=== PATIENT | male | born 1930 | race Caucasian/White ===

== ENCOUNTER → 2016-06-20 | Outpatient (CLI) | payer OTHER ==
[~2016-06-20] MED LIST: ACET-1256 PO; ALLO300T2 PO; AMX500 PO; ASPI81TA28 PO; ATOR-26 PO; ATROPO OR; BACI500O11 TOP; BUME2TAB3 PO; CALC0.2510 PO; CETI10TA84 PO; CRG25 PO; CYAN100020 SL; DIAZ-165 PO; DXY100 PO; FERR325T74 PO; GEMF600T3 PO; GLIM2TAB2 PO; INSDGIPEN SC; INSU32MI13 SQ; ISOS120T5 PO; LEVO100T7 PO; LINA1CAP PO; LORA-741 PO; MCRK20 PO; METO2.5T PO; MRPL PO; NRN400 PO; NTRGSL/4 UT; OMEP20CA9 PO; ONDA4TAB10 SL; ONDA8TAB6 PO; ONGLYZA PO; OXYC10SO PO; POTA-335 PO; POTA20TA16 PO; TEMA-79 PO; TRAM-10 PO; TRAZ100T29 PO
[2016-06-20 17:50] LABS: URINE APPEARANCE CLEAR (CLEAR); URINE BILIRUBIN NEG (NEG); URINE COLOR YELLOW; URINE NITRITE NEG (NEG); URINE SPECIFIC GRAVITY 1.011 (1.000-1.030); UROBILINOGEN NEG (NEG)
[2016-06-20 17:56] LABS: MANUAL MICROSCOPIC REQUIRED? NO; REVIEW REQ? NO
--- NOTE | 2016-06-29 12:31 | CODING QUERY MEDICAL NECESSITY ---
SUPPORTING DIAGNOSIS NEEDED A supporting diagnosis is required for the test/procedure performed on this patient in order for us to be reimbursed by the patient's insurance. Please provide a supporting diagnosis for the following test/procedure listed below next to the test name along with your signature. *If there is no additional diagnosis for this patient that would support the following test/procedure please document that below next to the test/procedure. Test(s)/Procedure(s) that require a supporting diagnosis: DOS 06/20/16 * Vitamin D DIAGNOSIS: Provider Signature: Date: Thank you Frannie Barragan Health Information Management Once completed, please kindly fax back to [phone] For questions please call [phone]
== END | disposition home or self-care (01) ==
LOC: C.LABMFLN 14:57
PROVIDERS: ATTEND Family Medicine
DX: L29.9 Pruritus, unspecified (principal); R41.0 Disorientation, unspecified; R35.0 Frequency of micturition; D64.9 Anemia, unspecified; E55.9 Vitamin D deficiency, unspecified

== ENCOUNTER → 2016-07-03 | Outpatient (CLI) | payer OTHER | END | disposition home or self-care (01) | LOC: C.LABSPEC 08:49 | PROVIDERS: ATTEND Internal Medicine Cardiovascular Disease | DX: E11.22 Type 2 diabetes mellitus with diabetic chronic kidney disease (principal); N18.9 Chronic kidney disease, unspecified; I50.22 Chronic systolic (congestive) heart failure ==

== ENCOUNTER 2016-07-04 16:44 | Inpatient (IN) | payer OTHER ==
[~2016-07-04] VITALS: Ht 182.9 cm; Wt 89.0 kg
[~2016-07-04 16:44] MED LIST changes: -ACET-1256 PO; -ATROPO OR; -BACI500O11 TOP; -CETI10TA84 PO; -DIAZ-165 PO; -MCRK20 PO; -MRPL PO; -ONDA4TAB10 SL; -ONDA8TAB6 PO; -OXYC10SO PO; -POTA20TA16 PO; -TRAZ100T29 PO
[2016-07-04] MEDS ORDERED: POTA20TA16 PO (17:29)
[2016-07-04] MEDS ORDERED: TRAZ100T29 PO (17:30)
[2016-07-04] MEDS ORDERED: CETI10TA84 PO (17:31)
[2016-07-04] MEDS ORDERED: ACET-1256 PO (17:32)
[2016-07-04] MEDS ORDERED: ONDA8TAB6 PO (17:32)
[2016-07-04 18:05] LABS: INR 1.2 (0.9-1.1); PARTIAL THROMBOPLASTIN RATIO 1.1; PROTHROMBIN TIME (PATIENT) 13.1 SECONDS (9.0-12.0)
[2016-07-04 18:09] LABS: ALT/SGPT 11 U/L (12-78); BLOOD UREA NITROGEN 47 mg/dl (7-18); BUN/CREATININE RATIO 21.4 (10-20); CALCIUM 9.2 mg/dl (8.5-10.1); CARBON DIOXIDE 28 mmol/L (21-32); CHLORIDE 100 mmol/L (98-107); GLUCOSE 199 mg/dl (70-99); POTASSIUM 3.9 mmol/L (3.5-5.1); SODIUM 141 mmol/L (136-145)
--- NOTE | 2016-07-04 18:12 | DIAGNOSTIC IMAGING REPORT ---
CT SCAN OF THE BRAIN WITHOUT IV CONTRAST CLINICAL HISTORY: Change in mental status. COMPARISON STUDY: CT of the brain dated 02/28/2014. TECHNIQUE: Unenhanced axial CT scan of the brain is performed from the vertex to the skull base. CT DOSE: 729.78 mGycm FINDINGS: Brain parenchyma: There are age-related involutional changes noting [id number]-en-[id number] patchy subcortical and periventricular microangiopathic change. There is no hemorrhage, mass effect, or evidence of acute territorial ischemia by CT criteria. Graham-white matter is preserved. No extra-axial fluid collection is seen. Ventricles, sulci, cisterns: Prominent secondary to involutional change. Intracranial vasculature: There is advanced atherosclerotic calcification of the cavernous carotid and vertebral arteries. Calvarium: Unremarkable. Sinuses and mastoids: The visualized paranasal sinuses are clear. The mastoid air cells are well pneumatized. Orbits: The bony orbits are grossly intact. There are bilateral ocular lens implants. IMPRESSION: There is no hemorrhage, mass effect, or evidence of acute territorial ischemia by CT criteria. Electronically signed by: Jp Taylor M.D. 07/04/2016 6:10 PM Dictated Date/Time: 07/04/2016 6:08 PM
[2016-07-04 18:13] LABS: ALB/GLOB RATIO 0.9 (0.9-2); ALKALINE PHOSPHATASE 97 U/L (45-117); AST/SGOT 23 U/L (15-37); CKMB/CK RATIO 1.2 (0-3.0)
[2016-07-04 18:21] LABS: URINE APPEARANCE CLEAR (CLEAR); URINE BILIRUBIN NEG (NEG); URINE COLOR YELLOW; URINE NITRITE NEG (NEG); URINE SPECIFIC GRAVITY 1.008 (1.000-1.030); UROBILINOGEN NEG (NEG)
[2016-07-04 18:22] LABS: MANUAL MICROSCOPIC REQUIRED? NO; REVIEW REQ? NO
[2016-07-04 18:26] LABS: HEMATOCRIT 31.1 % (42-52); MEAN CELL VOLUME 104.4 fL (80-100); MEAN CORPUSCULAR HEMOGLOBIN 34.9 pg (25-34); MEAN CORPUSCULAR HGB CONC 33.4 g/dl (32-36); MEAN PLATELET VOLUME 9.9 fL (7.4-10.4); PLATELET COUNT 79 K/uL (130-400); RED BLOOD COUNT 2.98 M/uL (4.7-6.1); WHITE BLOOD COUNT 1.91 K/uL (4.8-10.8)
[2016-07-04 18:27] LABS: ANISOCYTOSIS PRESENT; BASO ABS # 0.02 K/uL (0-0.2); COMPLETE YES; DOHLE BODIES OCCASIONAL; EOS % 3.7 %; IG% 0.5 %; LYMPH % 49.2 %; LYMPH ABS # 0.94 K/uL (1.2-3.4); MONO % 5.2 %; NEUT % 40.4 %; SCHISTOCYTES OCCASIONAL; TEAR DROP CELLS OCCASIONAL; TOXIC GRANULATION 3+
[2016-07-04] MEDS ORDERED: ZOLPIDEM TARTRATE 5 MG TAB PO PRN (18:45)
[2016-07-04] MEDS ORDERED: DEXTROSE 50% 50 ML SYR IV PRN (18:45)
[2016-07-04] MEDS ORDERED: ACETAMINOPHEN 325 MG TAB PO PRN (18:45)
[2016-07-04] MEDS ORDERED: LORAZEPAM 0.5 MG TAB PO PRN (18:45)
[2016-07-04] MEDS ORDERED: NITROGLYCERIN 0.4 MG SL PER TAB CHARGE UT PRN (18:45)
[2016-07-04] MEDS ORDERED: TRAMADOL HCL 50 MG TAB PO PRN (18:45)
[2016-07-04] MEDS ORDERED: GLUCOSE 10 TABS/TUBE PO PRN (18:45)
[2016-07-04] MEDS ORDERED: GLUCAGON FOR INJ 1 MG VIAL SQ PRN (18:45)
[2016-07-04] MEDS ORDERED: GLUCOSE 40% GEL 15 GM TUBE PO PRN (18:45)
[2016-07-04] MEDS ORDERED: CETIRIZINE HCL 10 MG TAB PO PRN (18:45)
[2016-07-04] MEDS ORDERED: TRAZODONE HCL 100 MG TAB PO PRN (18:45)
[2016-07-04] MEDS ORDERED: VANCOMYCIN CONSULT ACTIVE PRN (19:45)
[2016-07-04] MEDS ORDERED: PIPERACILL/TAZOBAC CONSULT ACTIVE PRN (19:45)
[2016-07-04] MEDS ORDERED: PIPERACILL/TAZOBAC IV 3.375 GM in DEXTROSE 5% 100ML IV ONE (19:45)
--- NOTE | 2016-07-04 19:48 | Pharmacy Progress Note ---
Pharmacy Antibiotic Consult Date of Service: Jul 04, 2016. Pharmacy Dosing Scope Pharmacy is consulted to initiate vancomycin/Zosyn IV dosing therapy, order appropriate labs and adjust drug dose/frequency. Subjective The patient is a 85 year old male admitted on 07/04/2016 with neutropenia. Objective Height (Feet): 6 Height (Inches): 0 Weight (Kilograms): 89 Lab Results (24hrs): Laboratory Tests Test 07/04/16 17:20 BUN/Creatinine Ratio 21.4 Blood Urea Nitrogen 47 mg/dl Creatinine 2.20 mg/dl White Blood Count 1.91 K/uL Red Blood Count 2.98 M/uL Hemoglobin 10.4 g/dL Hematocrit 31.1 % Mean Corpuscular Volume 104.4 fL Mean Corpuscular Hemoglobin 34.9 pg Mean Corpuscular Hemoglobin Concent 33.4 g/dl Platelet Count 79 K/uL Mean Platelet Volume 9.9 fL Neutrophils (%) (Auto) 40.4 % Lymphocytes (%) (Auto) 49.2 % Monocytes (%) (Auto) 5.2 % Eosinophils (%) (Auto) 3.7 % Basophils (%) (Auto) 1.0 % Neutrophils # (Auto) 0.77 K/uL Lymphocytes # (Auto) 0.94 K/uL Monocytes # (Auto) 0.10 K/uL Eosinophils # (Auto) 0.07 K/uL Basophils # (Auto) 0.02 K/uL Assessment & Plan Loading dose: vancomycin 1700 (20 mg/kg) mg IV X 1 dose then: WILL OBTAIN RANDOM due to creatinine clearance of 27 ml/min (at this creatinine clearance, it is recommended that doses be dosed on levels) Goal peak level estimate: between 35 - 40 mcg/mL. Goal trough level estimate: between 15 - 20 mcg/mL (due to neutropenia). Random level has been ordered for: 2016. ZOSYN: due to neutropenia, aggressive dosing is being utilized. After a load, Zosyn 4.5 gm IV q8 hours will be adopted. Please note antibiotics last only for 48 hours as empiric indication selected. Pharmacy will continue to follow and will adjust dose/frequency as necessary. Thank you
--- NOTE | 2016-07-04 19:55 | DIAGNOSTIC IMAGING REPORT ---
KUB CLINICAL HISTORY: Abdominal distention. FINDINGS: 2 AP, portable, supine abdominal radiographs are correlated with abdominal CT dated 08/18/2014. There is a nonobstructed abdominal bowel gas pattern. No evidence of intraperitoneal free air is seen on these supine views. No abnormal abdominal calcifications are observed. The skeletal structures are osteopenic. Mild lumbosacral spondylosis is noted. The bony pelvis appears intact. The heart is enlarged and pacemaker leads are identified. The lung bases are clear as imaged. IMPRESSION: Nonobstructed abdominal bowel gas pattern. Electronically signed by: Jp Taylor M.D. 07/04/2016 7:53 PM Dictated Date/Time: 07/04/2016 7:52 PM
--- NOTE | 2016-07-04 19:57 | DIAGNOSTIC IMAGING REPORT ---
SINGLE VIEW PELVIS; 2 VIEWS RIGHT HIP; 2 VIEWS LEFT HIP CLINICAL HISTORY: Bilateral hip pain. FINDINGS: An AP portable supine view of the pelvis with AP and frog-leg portable views of the right and left hips are correlated with pelvic CT dated 08/18/2014. The skeletal structures are osteopenic. No fracture is identified in the hips or bony pelvis. Mild arthritic change is present in both hips. There is mild sclerotic change seen in the sacroiliac joints. Enthesophytes arise from the greater trochanters of the proximal femora and the anterior superior iliac spine bilaterally. The overlying soft tissues are within normal limits. There is atherosclerotic calcification present within the femoral artery bilaterally. A nonobstructed abdominal bowel gas pattern is observed. Mild lumbosacral spondylosis is partially imaged. IMPRESSION: 1. No acute bony abnormality is seen in the hips or pelvis. 2. Osteopenia and mild degenerative change as above. Electronically signed by: Jp Taylor M.D. 07/04/2016 7:55 PM Dictated Date/Time: 07/04/2016 7:53 PM
--- NOTE | 2016-07-04 19:59 | DIAGNOSTIC IMAGING REPORT ---
SINGLE VIEW CHEST CLINICAL HISTORY: Cough. FINDINGS: An AP, portable, upright chest radiographs are compared to chest x-ray and chest CT dated 04/29/2016. The examination is degraded by portable technique and patient rotation. A 2-lead cardiac AICD is unchanged in position and partially obscures the left upper chest. The heart is enlarged and there is atherosclerotic calcification of the thoracic aorta. There is pulmonary vascular congestion and mild interstitial edema. Mild elevation of the right hemidiaphragm is unchanged. No focal airspace consolidation or large pleural effusion is seen. There is no pneumothorax. The skeletal structures are osteopenic. The bony thorax is grossly intact. IMPRESSION: 1. Cardiomegaly and AICD. There is evidence of congestive failure and mild interstitial edema. 2. No focal airspace consolidation or large pleural effusion is identified. Electronically signed by: Jp Taylor M.D. 07/04/2016 7:57 PM Dictated Date/Time: 07/04/2016 7:55 PM
[2016-07-04] MEDS ORDERED: VANCOMYCIN INJ 1,700 MG in SODIUM CHLORIDE 0.9% 500ML 500 ML IV ONE (20:00)
[2016-07-04] MEDS: INSULIN ASPART 100 UNITS/ML 3 ML PEN SC SCH (21:00)
[2016-07-04] MEDS: CARVEDILOL 25 MG TAB PO SCH (21:00)
[2016-07-04 21:20] VITALS: BP 116/67; PULSE 75; TEMP 36.4; O2SAT 96; Ht 182.9 cm; Wt 89.0 kg
[2016-07-04] MEDS ORDERED: LACTULOSE SYRUP 20 GM/30 ML UDC PO STA (21:34)
[2016-07-04] MEDS: LINZESS~ORDER AWAITING ACTION SCH ×2 (22:00→23:38)
--- NOTE | 2016-07-04 22:16 | History and Physical ---
History & Physical Date & Time of Service: Jul 04, 2016 at 21:39 Chief Complaint: Altered Mental Status Primary Care Physician: Jp Hernandez M.D. History of Present Illness Source: patient The patient is a 85-year-old male who is referred from Dr. Arias's office for concerns regarding one week of disorientation that has begun after he started chemotherapy for myelodysplastic syndrome. He was noted to have abdominal bloating and bruising since that time, and his oral intake for solids has declined considerably, but his daughter who is present and provides history , reports that his liquid intake has continued to be high. He reportedly had a urine culture performed last week which was negative, and his hemoglobin of 9.8 is stable for him as well. 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 Past Medical/Surgical History Medical Problems: (1) Arthritis Status: Chronic (2) Atrial fibrillation Status: Chronic (3) Cardiomyopathy Status: Chronic (4) CHF (congestive heart failure) Status: Chronic (5) CHF exacerbation Status: Resolved (6) Chronic kidney disease Status: Chronic (7) Coronary artery disease Status: Chronic (8) Diabetes mellitus with neuropathy Status: Chronic (9) Fall Status: Resolved (10) Hyperlipidemia Status: Chronic (11) Hypothyroidism Status: Chronic (12) Pacemaker Status: Chronic (13) Vitamin B12 deficiency Status: Chronic (14) Wrist contusion Status: Resolved Surgical Problems: (1) History of esophagogastroduodenoscopy Status: Resolved (2) S/P cardiac catheterization Status: Resolved (3) S/P cervical spinal fusion Status: Resolved Family History Heart disease Social History Smoking Status: Former Smoker Smokeless Tobacco Use: No Alcohol Use: none Drug Use: none Marital Status: Occupational Status: retired Immunizations History of Influenza Vaccine: No History of Tetanus Vaccine?: Yes Tetanus Immunization Date: Apr 01, 2004 History of Pneumococcal: Yes Pneumococcal Date: Apr 01, 2002 History of Hepatitis B Vaccine: Yes Hepatitis Immunization Date: Apr 01, 2005 Multi-Drug Resistant Organisms History of MDRO: No Allergies Coded Allergies: Amlodipine (Verified Allergy, Unknown, UNKNOWN, 07/04/16) Loratadine (Verified Allergy, Unknown, unknown, 07/04/16) NSAIDs (Verified Allergy, Unknown, UNKNOWN, 07/04/16) Pravastatin (Verified Allergy, Unknown, UNKNOWN, 07/04/16) Valsartan (Verified Allergy, Unknown, UNKNOWN, 07/04/16) Home Medications Scheduled Acetaminophen (Tylenol), 1,000 MG PO BID Allopurinol (Zyloprim), 300 MG PO QAM Aspirin (Aspirin Ec), 81 MG PO QAM Atorvastatin (Lipitor), 80 MG PO HS Bumetanide (Bumex), 4 MG PO BID Calcitriol (Rocaltrol Cap), 0.25 MCG PO M-- Carvedilol (Carvedilol), 25 MG PO BID Cyanocobalamin (Vitamin B12), 1 TAB SL QAM Ferrous Gluconate (Ferrous Gluconate), 325 MG PO QAM Gabapentin (Gabapentin), 400 MG PO TID Gemfibrozil (Lopid), 600 MG PO QAM Glimepiride (Glimepiride), 4 MG PO BID Insulin Glargine (Lantus Solostar), 10 UNIT SC DAILY Isosorbide Mononitrate Ext Rel (Imdur Ext Rel), 120 MG PO QAM Levothyroxine Sodium (Levothyroxine Sodium), 100 MCG PO QAM Linaclotide (Linzess), 145 MCG PO DAILY Nitroglycerin (Nitrostat), 0.4 MG UT PRN Omeprazole (Prilosec), 20 MG PO DAILY Potassium Chloride (Micro-K Ext Rel), 40 MEQ PO TID Potassium Ext Rel (Klor-Con), 60 MEQ PO QPM [Onglyza], 2.5 MG PO QAM Scheduled PRN Cetirizine (Zyrtec), 10 MG PO DAILY PRN for PRN Lorazepam (Ativan), 0.25-0.5 MG PO ACHS PRN for Anxiety Metolazone (Zaroxolyn), 2.5 MG PO DAILY PRN for edema,sob Ondansetron Hcl (Zofran), 8 MG PO Q8 PRN for Nausea Tramadol (Ultram), 50-100 MG PO QID PRN for SEVERE PAIN Trazodone Hcl (Trazodone), 100-200 MG PO HS PRN for Sleep Review of Systems The patient denies chest pain, palpitations, shortness of breath, lower extremity swelling, vision change, hearing change, sore throat, fevers, chills, sweats, nausea, vomiting, abdominal pain, pelvic pain, blood in urine or stool, dysuria, urinary frequency or urgency, lightheadedness, dizziness, headache, imbalance, focal weakness, numbness or tingling in arms or legs, back or neck pain, night sweats, or allergy symptoms. The review of systems is otherwise negative other than for that already noted above, and at least 10 systems have been reviewed. Physical Exam Vital Signs Date Time Temp Pulse Resp B/P Pulse Ox O2 Delivery O2 Flow Rate FiO2 07/04/16 19:12 73 21 113/70 96 Room Air 07/04/16 16:46 36.4 60 20 112/69 96 The patient is awake, alert and oriented 3, looks pale and appears very fatigued, lying in bed and in no acute distress. HEENT--PERRL, EOMI, mucous membranes moist, and oropharynx normal. Neck--supple, no JVD or bruits, thyroid normal, trachea midline, no adenopathy. Heart--normal S1 and S2, no extra beats, no murmurs, rubs or gallops. Lungs--decreased breath sounds at the bases bilaterally, no respiratory distress , no accessory muscle use. Abdomen--normal bowel sounds and soft, nontender and nondistended, no hernias or masses, no organomegaly. Extremities--no cyanosis, clubbing or edema. There are good distal pulses b/l. Dermatologic--normal skin turgor, looks pale, warm and dry, no abnormal lymph nodes, no rash. Neurologic--cranial nerves II through XII grossly intact, motor and sensory examination normal. Psychiatric--normal affect, but appears fatigued Diagnostics Laboratory Results Results Past 24 Hours Test 07/04/16 17:20 07/04/16 17:24 07/04/16 17:30 07/04/16 17:55 Range/Units White Blood Count 1.91 4.8-10.8 K/uL Red Blood Count 2.98 4.7-6.1 M/uL Hemoglobin 10.4 14.0-18.0 g/dL Hematocrit 31.1 42-52 % Mean Corpuscular Volume 104.4 80-100 fL Mean Corpuscular Hemoglobin 34.9 25-34 pg Mean Corpuscular Hemoglobin Concent 33.4 32-36 g/dl Platelet Count 79 130-400 K/uL Mean Platelet Volume 9.9 7.4-10.4 fL Neutrophils (%) (Auto) 40.4 % Lymphocytes (%) (Auto) 49.2 % Monocytes (%) (Auto) 5.2 % Eosinophils (%) (Auto) 3.7 % Basophils (%) (Auto) 1.0 % Neutrophils # (Auto) 0.77 1.4-6.5 K/uL Lymphocytes # (Auto) 0.94 1.2-3.4 K/uL Monocytes # (Auto) 0.10 0.11-0.59 K/uL Eosinophils # (Auto) 0.07 0-0.5 K/uL Basophils # (Auto) 0.02 0-0.2 K/uL RDW Standard Deviation 80.5 36.4-46.3 fL RDW Coefficient of Variation 21.2 11.5-14.5 % Immature Granulocyte % (Auto) 0.5 % Immature Granulocyte # (Auto) 0.01 0.00-0.02 K/uL Toxic Granulation 3+ Dohle Bodies OCCASIONAL Anisocytosis PRESENT Tear Drop Cells OCCASIONAL Schistocytes OCCASIONAL Prothrombin Time 13.1 9.0-12.0 SECONDS Prothromb Time International Ratio 1.2 0.9-1.1 Activated Partial Thromboplast Time 27.5 21.0-31.0 SECONDS Partial Thromboplastin Ratio 1.1 Sodium Level 141 136-145 mmol/L Potassium Level 3.9 3.5-5.1 mmol/L Chloride Level 100 98-107 mmol/L Carbon Dioxide Level 28 21-32 mmol/L Anion Gap 13.0 3-11 mmol/L Blood Urea Nitrogen 47 7-18 mg/dl Creatinine 2.20 0.60-1.40 mg/dl Estimated GFR () 31.0 Estimated GFR (Non- 26.7 BUN/Creatinine Ratio 21.4 10-20 Random Glucose 199 70-99 mg/dl Calcium Level 9.2 8.5-10.1 mg/dl Total Bilirubin 2.0 0.2-1 mg/dl Aspartate Amino Transf (AST/SGOT) 23 15-37 U/L Alanine Aminotransferase (ALT/SGPT) 11 12-78 U/L Alkaline Phosphatase 97 45-117 U/L Total Creatine Kinase 103 39-308 U/L Creatine Kinase MB 1.2 0.5-3.6 ng/ml Creatine Kinase MB Ratio 1.2 0-3.0 Troponin I 0.043 0-0.045 ng/ml Total Protein 6.5 6.4-8.2 gm/dl Albumin 3.0 3.4-5.0 gm/dl Globulin 3.5 2.5-4.0 gm/dl Albumin/Globulin Ratio 0.9 0.9-2 Ammonia 45.0 11-32 umol/L Bedside Lactic Acid Venous 1.61 0.90-1.70 mmol/L Urine Color YELLOW Urine Appearance CLEAR CLEAR Urine pH 6.0 4.5-7.5 Urine Specific [place] 1.008 1.000-1.030 Urine Protein NEG NEG Urine Glucose (UA) NEG NEG Urine Ketones NEG NEG Urine Occult Blood NEG NEG Urine Nitrite NEG NEG Urine Bilirubin NEG NEG Urine Urobilinogen NEG NEG Urine Leukocyte Esterase NEG NEG Test 07/04/16 19:16 Range/Units Bedside Glucose 176 70-99 mg/dl Microbiology Results 07/04/16 Blood Culture, Received Pending 07/04/16 Blood Culture, Received Pending 07/04/16 Urine Culture, Received Pending Diagnostic Radiology Patient Name: KAREN REDD Unit Number: [id number] Dictated: 07/04/161951 Transcribed: 07/04/161951 EV Printed Date/Time: [~ rep prt dt]/[~ rep prt tm] [~ rep ct labl] - [~ rep ct ivnm] [facility] [place] [address] Dictated: 07/04/161951 Transcribed: 07/04/161951 EV Printed Date/Time: [~ rep prt dt]/[~ rep prt tm] [~ rep ct labl] - [~ rep ct ivnm] CLINICAL HISTORY: Abdominal distention. FINDINGS: 2 AP, portable, supine abdominal radiographs are correlated with abdominal CT dated 08/18/2014. There is a nonobstructed abdominal bowel gas pattern. No evidence of intraperitoneal free air is seen on these supine views. No abnormal abdominal calcifications are observed. The skeletal structures are osteopenic. Mild lumbosacral spondylosis is noted. The bony pelvis appears intact. The heart is enlarged and pacemaker leads are identified. The lung bases are clear as imaged. IMPRESSION: Nonobstructed abdominal bowel gas pattern. Electronically signed by: Jp Taylor M.D. 07/04/2016 7:53 PM Dictated Date/Time: 07/04/2016 7:52 PM The status of this report is Signed. Draft = Not yet reviewed or approved by Radiologist. Signed = Reviewed and approved by Radiologist. <AttendingPhy></AttendingPhy> <FamilyPhy>Jp Hernandez M.D.</FamilyPhy> < PrimaryPhy>Jp Hernandez M.D.</PrimaryPhy> <UnitNumber>[id number]</UnitNumber> < VisitNumber>[id number]</VisitNumber> <PatientName>KAREN REDD Jae</ PatientName> <DateOfBirth>1930</DateOfBirth> <Location>[facility]</Location> < ServiceDate>07/04/16</ServiceDate> <MNE>ESINDI</MNE> <OrderingPhy>Gianluca Mullins M.D.</OrderingPhy> <OrderingPhyMNE>f rep ord dr delgado</OrderingPhyMNE> < DictatingPhyMNE>f rep dict dr delgado</DictatingPhyMNE> <CCListMNE>f rep ct mne</ CCListMNE> <AdmittingPhyMNE>f pt admit dr delgado</AdmittingPhyMNE> <AttendingPhyMNE >f pt attend dr delgado</AttendingPhyMNE> <ConsultingPhyMNE>f pt consult dr delgado</ConsultingPhyMNE> <FamilyPhyMNE>f pt fam dr delgado</FamilyPhyMNE> <OtherPhyMNE>f pt other dr delgado</OtherPhyMNE> < PrimaryPhyMNE>f pt prim care dr delgado</PrimaryPhyMNE> <ReferringPhyMNE>f pt referring dr delgado</ReferringPhyMNE> Patient Name: KAREN REDD Unit Number: [id number] Dictated: 07/04/161952 Transcribed: 07/04/161952 EV Printed Date/Time: [~ rep prt dt]/[~ rep prt tm] [~ rep ct labl] - [~ rep ct ivnm] [facility] [place] [address] Dictated: 07/04/161952 Transcribed: 07/04/161952 EV Printed Date/Time: [~ rep prt dt]/[~ rep prt tm] [~ rep ct labl] - [~ rep ct ivnm] SINGLE VIEW PELVIS; 2 VIEWS RIGHT HIP; 2 VIEWS LEFT HIP CLINICAL HISTORY: Bilateral hip pain. FINDINGS: An AP portable supine view of the pelvis with AP and frog-leg portable views of the right and left hips are correlated with pelvic CT dated 08/18/2014. The skeletal structures are osteopenic. No fracture is identified in the hips or bony pelvis. Mild arthritic change is present in both hips. There is mild sclerotic change seen in the sacroiliac joints. Enthesophytes arise from the greater trochanters of the proximal femora and the anterior superior iliac spine bilaterally. The overlying soft tissues are within normal limits. There is atherosclerotic calcification present within the femoral artery bilaterally. A nonobstructed abdominal bowel gas pattern is observed. Mild lumbosacral spondylosis is partially imaged. IMPRESSION: 1. No acute bony abnormality is seen in the hips or pelvis. 2. Osteopenia and mild degenerative change as above. Electronically signed by: Jp Taylor M.D. 07/04/2016 7:55 PM Dictated Date/Time: 07/04/2016 7:53 PM The status of this report is Signed. Draft = Not yet reviewed or approved by Radiologist. Signed = Reviewed and approved by Radiologist. <AttendingPhy></AttendingPhy> <FamilyPhy>Jp Hernandez M.D.</FamilyPhy> < PrimaryPhy>Jp Hernandez M.D.</PrimaryPhy> <UnitNumber>[id number]</UnitNumber> < VisitNumber>[id number]</VisitNumber> <PatientName>KAREN REDD</ PatientName> <DateOfBirth>1930</DateOfBirth> <Location[facility]</Location> < ServiceDate>07/04/16</ServiceDate> <MNE>ESINDI</MNE> <OrderingPhy>Gianluca Mullins M.D.</OrderingPhy> <OrderingPhyMNE>f rep ord dr delgado</OrderingPhyMNE> < DictatingPhyMNE>f rep dict dr delgado</DictatingPhyMNE> <CCListMNE>f rep ct mne</ CCListMNE> <AdmittingPhyMNE>f pt admit dr delgado</AdmittingPhyMNE> <AttendingPhyMNE >f pt attend dr delgado</AttendingPhyMNE> <ConsultingPhyMNE>f pt consult dr delgado</ConsultingPhyMNE> <FamilyPhyMNE>f pt fam dr delgado</FamilyPhyMNE> <OtherPhyMNE>f pt other dr delgado</OtherPhyMNE> < PrimaryPhyMNE>f pt prim care dr delgado</PrimaryPhyMNE> <ReferringPhyMNE>f pt referring dr delgado</ReferringPhyMNE> Patient Name: KAREN REDD Unit Number: [id number] Dictated: 07/04/161954 Transcribed: 07/04/161954 EV Printed Date/Time: [~ rep prt dt]/[~ rep prt tm] [~ rep ct labl] - [~ rep ct ivnm] [facility] [place] [address] Dictated: 07/04/161954 Transcribed: 07/04/161954 EV Printed Date/Time: [~ rep prt dt]/[~ rep prt tm] [~ rep ct labl] - [~ rep ct ivnm] SINGLE VIEW CHEST CLINICAL HISTORY: Cough. FINDINGS: An AP, portable, upright chest radiographs are compared to chest x-ray and chest CT dated 04/29/2016. The examination is degraded by portable technique and patient rotation. A 2-lead cardiac AICD is unchanged in position and partially obscures the left upper chest. The heart is enlarged and there is atherosclerotic calcification of the thoracic aorta. There is pulmonary vascular congestion and mild interstitial edema. Mild elevation of the right hemidiaphragm is unchanged. No focal airspace consolidation or large pleural effusion is seen. There is no pneumothorax. The skeletal structures are osteopenic. The bony thorax is grossly intact. IMPRESSION: 1. Cardiomegaly and AICD. There is evidence of congestive failure and mild interstitial edema. 2. No focal airspace consolidation or large pleural effusion is identified. Electronically signed by: Jp Taylor M.D. 07/04/2016 7:57 PM Dictated Date/Time: 07/04/2016 7:55 PM The status of this report is Signed. Draft = Not yet reviewed or approved by Radiologist. Signed = Reviewed and approved by Radiologist. <AttendingPhy></AttendingPhy> <FamilyPhy>Jp Hernandez M.D.</FamilyPhy> < PrimaryPhy>Jp Hernandez M.D.</PrimaryPhy> <UnitNumber>[id number]</UnitNumber> < VisitNumber>[id number]</VisitNumber> <PatientName>REDDKAREN Jae</ PatientName> <DateOfBirth>1930</DateOfBirth> <Location>[facility]</Location> < ServiceDate>07/04/16</ServiceDate> <MNE>ESINDI</MNE> <OrderingPhy>Gianluca Mullins M.D.</OrderingPhy> <OrderingPhyMNE>f rep ord dr delgado</OrderingPhyMNE> < DictatingPhyMNE>f rep dict dr delgado</DictatingPhyMNE> <CCListMNE>f rep ct mne</ CCListMNE> <AdmittingPhyMNE>f pt admit dr delgado</AdmittingPhyMNE> <AttendingPhyMNE >f pt attend dr delgado</AttendingPhyMNE> <ConsultingPhyMNE>f pt consult dr delgado</ConsultingPhyMNE> <FamilyPhyMNE>f pt fam dr delgado</FamilyPhyMNE> <OtherPhyMNE>f pt other dr delgado</OtherPhyMNE> < PrimaryPhyMNE>f pt prim care dr delgado</PrimaryPhyMNE> <ReferringPhyMNE>f pt referring dr delgado</ReferringPhyMNE> Patient Name: KAREN REDD Unit Number: [id number] Dictated: 07/04/161807 Transcribed: 07/04/161807 EV Printed Date/Time: [~ rep prt dt]/[~ rep prt tm] [~ rep ct labl] - [~ rep ct ivnm] [facility] [place] [address] Dictated: 07/04/161807 Transcribed: 07/04/161807 EV Printed Date/Time: [~ rep prt dt]/[~ rep prt tm] [~ rep ct labl] - [~ rep ct ivnm] [~ rep ct add3]] CT SCAN OF THE BRAIN WITHOUT IV CONTRAST CLINICAL HISTORY: Change in mental status. COMPARISON STUDY: CT of the brain dated 02/28/2014. TECHNIQUE: Unenhanced axial CT scan of the brain is performed from the vertex to the skull base. CT DOSE: 729.78 mGycm FINDINGS: Brain parenchyma: There are age-related involutional changes noting [id number] patchy subcortical and periventricular microangiopathic change. There is no hemorrhage, mass effect, or evidence of acute territorial ischemia by CT criteria. Graham-white matter is preserved. No extra-axial fluid collection is seen. Ventricles, sulci, cisterns: Prominent secondary to involutional change. Intracranial vasculature: There is advanced atherosclerotic calcification of the cavernous carotid and vertebral arteries. Calvarium: Unremarkable. Sinuses and mastoids: The visualized paranasal sinuses are clear. The mastoid air cells are well pneumatized. Orbits: The bony orbits are grossly intact. There are bilateral ocular lens implants. IMPRESSION: There is no hemorrhage, mass effect, or evidence of acute territorial ischemia by CT criteria. Electronically signed by: Jp Taylor M.D. 07/04/2016 6:10 PM Dictated Date/Time: 07/04/2016 6:08 PM The status of this report is Signed. Draft = Not yet reviewed or approved by Radiologist. Signed = Reviewed and approved by Radiologist. <AttendingPhy></AttendingPhy> <FamilyPhy>Jp Hernandez M.D.</FamilyPhy> < PrimaryPhy>Jp Hernandez M.D.</PrimaryPhy> <UnitNumber>[id number]</UnitNumber> < VisitNumber>[id number]</VisitNumber> <PatientName>REDDKAREN</ PatientName> <DateOfBirth>1930</DateOfBirth> <Location>[facility]</Location> < ServiceDate>07/04/16</ServiceDate> <MNE>ESINDI</MNE> <OrderingPhy>Gianluca Mullins M.D.</OrderingPhy> <OrderingPhyMNE>f rep ord dr delgado</OrderingPhyMNE> < DictatingPhyMNE>f rep dict dr delgado</DictatingPhyMNE> <CCListMNE>f rep ct sandy</ CCListMNE> <AdmittingPhyMNE>f pt admit dr delgado</AdmittingPhyMNE> <AttendingPhyMNE >f pt attend dr delgado</AttendingPhyMNE> <ConsultingPhyMNE>f pt consult dr delgado</ConsultingPhyMNE> <FamilyPhyMNE>f pt fam dr delgado</FamilyPhyMNE> <OtherPhyMNE>f pt other dr delgado</OtherPhyMNE> < PrimaryPhyMNE>f pt prim care dr delgado</PrimaryPhyMNE> <ReferringPhyMNE>f pt referring dr delgado</ReferringPhyMNE> EKG EKG shows ventricular pacing at 70 bpm, with no acute ST-T changes. Impression Assessment and Plan Neutropenia/abdominal wall cellulitis--we'll place empirically on vancomycin IV per renal dosing, and Zosyn 3.375 mg IV every 8 hours. Urine cultures and blood cultures are pending. He does have scattered ecchymoses across his abdomen, and in the right right lower quadrant has a central excoriated area with surrounding erythema and abdominal wall cellulitis. CAD/Atrial fibrillation/nonischemic cardiomyopathy/chronic systolic CHF--we will continue carvedilol 25 mg by mouth twice a day with hold parameters, aspirin 81 mg by mouth every morning, Imdur extended release 120 mg by mouth every morning, nitroglycerin sublingual when necessary. We will resume Bumex 4 mg by mouth twice a day, and potassium chloride 40 mEq by mouth twice a day starting tomorrow a.m. Diabetes mellitus--hold on glimepiride 2 mg by mouth twice a day and Onglyza 2.5 mg by mouth every morning continue Lantus Solostar 10 units subcutaneous every morning. Place on Accu-Cheks before meals and at bedtime with NovoLog coverage. Hypercholesterolemia--continue atorvastatin 80 mg by mouth at bedtime, and gemfibrozil 600 mg by mouth every morning. Gout--continue allopurinol 300 mg by mouth every morning. Hypothyroidism--continue levothyroxine sodium at 100 g by mouth every morning. GERD--change omeprazole 20 mg by mouth daily to pantoprazole 40 mg by mouth daily. 1 and B12 deficiency--continue vitamin B-12 1000 g by mouth daily supplement. GI dysmotility--continue Linzess at 145 g by mouth daily. Anxiety/insomnia--continue lorazepam 1 mg by mouth at bedtime, and 0.5 mg by mouth during the night if wakes up. We'll hold trazodone 100 mg by mouth at bedtime associated with family discussion. Peripheral neuropathy--continue gabapentin 400 mg by mouth 3 times a day. Pain management--continue tramadol 50 mg by mouth 4 times a day when necessary. Nausea--change Zofran to 4 mg IV every 6 hours when necessary with repeat in 30 minutes if needed. Allergy--continue cetirizine 10 mg by mouth daily when necessary. Level of Care Med/Surg Advanced Directives Existing Advance Directive: No Existing Living Will: No Existing Power of Campus Wellness Coordinator: No Resuscitation Status FULL RESUSCITATION VTE Prophylaxis VTE Risk Assessment Done? Y/N: Yes Risk Level: Moderate Given or contraindicated: SCD's Social Service Consult Cancer Patient Under [place]
[2016-07-04] MEDS ORDERED: LORAZEPAM 1 MG TAB PO PRN (22:30)
[2016-07-04 22:46] VITALS: BP 113/66; PULSE 69
[2016-07-04] MEDS: ATORVASTATIN 40 MG TAB PO SCH (22:49)
[2016-07-04] MEDS: GABAPENTIN 400 MG CAP PO SCH (22:50)
[2016-07-04] MEDS: ACETAMINOPHEN 500 MG TAB PO SCH (22:50)
[2016-07-04 23:08] VITALS: BP 103/66; PULSE 77; TEMP 36.6; O2SAT 95
[2016-07-04] MEDS: LORAZEPAM 0.5 MG TAB PO PRN (23:36)
[2016-07-05] VITALS (8 sets, daily range): BP systolic 97–112; BP diastolic 59–75; PULSE 74–85; TEMP 36.3–37.3; O2SAT 93–94
[2016-07-05] MEDS: PIPERACILL/TAZOBAC IV 4.5 GM in DEXTROSE 5% 100ML 100 ML IV SCH ×3 (01:46→17:37)
[2016-07-05] MEDS: LEVOTHYROXINE 100 MCG TAB PO SCH (06:24)
[2016-07-05] MEDS: INSULIN ASPART 100 UNITS/ML 3 ML PEN SC SCH ×4 (06:30→21:00)
[2016-07-05] MEDS ORDERED: INFLUENZA VIRUS QUAD VACCINE 0.5 ML SYR IM. ONE (08:00)
[2016-07-05] MEDS ORDERED: INFLUENZA ADMINISTRATION CHARGE ONE (08:00)
[2016-07-05] MEDS: LINZESS~ORDER AWAITING ACTION SCH ×2 (08:00→15:40)
[2016-07-05] MEDS: BUMETANIDE 1 MG TAB PO SCH ×2 (08:05→17:33)
[2016-07-05] MEDS: FERROUS GLUCONATE 324 MG TAB PO SCH (08:05)
[2016-07-05] MEDS: ASPIRIN 81 MG ECTAB PO SCH (08:06)
[2016-07-05] MEDS: POTASSIUM CHLORIDE 20 MEQ TABCR PO SCH ×2 (08:06→17:34)
[2016-07-05] MEDS: ACETAMINOPHEN 500 MG TAB PO SCH ×2 (08:07→20:16)
[2016-07-05] MEDS: CYANOCOBALAMIN 500 MCG TAB (VIT B-12) PO SCH (08:07)
[2016-07-05] MEDS: CALCITRIOL 0.25 MCG CAP PO SCH (08:08)
[2016-07-05] MEDS: GABAPENTIN 400 MG CAP PO SCH ×3 (08:08→20:13)
[2016-07-05] MEDS: PANTOprazole SOD 40 MG TAB PO SCH (08:08)
[2016-07-05] MEDS: GEMFIBROZIL 600 MG TAB PO SCH (08:08)
[2016-07-05] MEDS: ALLOPURINOL 300 MG TAB PO SCH (08:08)
[2016-07-05] MEDS: ISOSORBIDE MONONITRATE 60 MG TABCR PO SCH (08:09)
[2016-07-05] MEDS: INSULIN GLARGINE SOLOSTAR 100 UNITS/ML 3 ML PEN SC SCH (08:21)
[2016-07-05] MEDS: CARVEDILOL 25 MG TAB PO SCH ×2 (08:23→20:14)
--- NOTE | 2016-07-05 11:24 | Pharmacy Progress Note ---
Pharmacy Antibiotic Prog Note Date of Service: Jul 05, 2016. Subjective: The patient is currently receiving Vancomycin IV and Zosyn 4.5g IV every 8 hours for treatment of abdominal wall cellulitis. The patient is currently on day # 1 of IV therapy. Objective: Height (Feet): 6 Height (Inches): 0 Weight (Kilograms): 89.000 Levels: Item Value Date Time Random Vancomycin Level 15.6 mcg/ml 07/05/16 0517 Lab Results (24hrs): Laboratory Tests Test 07/04/16 17:20 07/05/16 05:17 BUN/Creatinine Ratio 21.4 Blood Urea Nitrogen 47 mg/dl Creatinine 2.20 mg/dl 2.00 mg/dl White Blood Count 1.91 K/uL Red Blood Count 2.98 M/uL Hemoglobin 10.4 g/dL Hematocrit 31.1 % Mean Corpuscular Volume 104.4 fL Mean Corpuscular Hemoglobin 34.9 pg Mean Corpuscular Hemoglobin Concent 33.4 g/dl Platelet Count 79 K/uL Mean Platelet Volume 9.9 fL Neutrophils (%) (Auto) 40.4 % Lymphocytes (%) (Auto) 49.2 % Monocytes (%) (Auto) 5.2 % Eosinophils (%) (Auto) 3.7 % Basophils (%) (Auto) 1.0 % Neutrophils # (Auto) 0.77 K/uL Lymphocytes # (Auto) 0.94 K/uL Monocytes # (Auto) 0.10 K/uL Eosinophils # (Auto) 0.07 K/uL Basophils # (Auto) 0.02 K/uL Micro Results: Item Value Date Time Blood Culture Received 07/04/16 1720 Blood Pending Blood Culture Received 07/04/16 1722 Blood Pending Urine Culture Received 07/04/16 1755 Urine,Catheterized Pending Assessment & Plan: Assessment 85 year old male receiving empiric Vancomycin and Zosyn for abdominal wall cellulitis in the setting of chemotherapy induced neutropenia. Patient is receiving chemotherapy for MDS and has a h/o CKD. No previously documented multidrug resistant pathogens. Plan Vancomycin IV dosing: * Patient was administered a loading dose of 1700 mg IV on 07/04 at 2000, followed by a random level this am. Random level is 15.6 mcg/mL. * Patient's Scr improved from 2.2 to 2.0 mg/dL this morning. Scr is at baseline. PK estimates: ke = 0.029 hr-1, T1/2 = 23.8 hr. * Goal trough level estimate: ~ 15 mcg/mL. * If Vancomycin therapy is continued beyond 48 hours, a trough level should be checked on 07/07/16 prior to the 1400 dose. Zosyn IV * Continue 4.5g IV every 8 hours for CrCl > 20 ml/min. Please note that antibiotics were ordered with an indication of "empiric" -> 48 hour stop. Will ensure provider is aware. Pharmacy will continue to follow and will adjust dose/frequency as necessary. Thank you
--- NOTE | 2016-07-05 12:42 | Clinical Documentation Query ---
Dr. LIN ROCHE, [facility]. : CLINICAL DOCUMENTATION QUERIES QUERY 1 OF 3 Patient is an 85 year old male admitted with altered mental status in the setting of chemotherapy for myelodysplastic syndrome. Admission diagnoses include neutropenia. Hematologic review reveals patient to be pancytopenic (WBC 1.91, H/H 10.4/31.1, and PLT 79). Hematology was consulted on recent admission but follow up unavailable to this continuity writer. As able, please clarify as clinically appropriate. Thank you. In your clinical opinion is this patient being managed for: ( x ) Pancytopenia due to antineoplastic chemotherapy and myelodysplastic syndrome ( ) Other explanation of clinical findings (Please Explain) ( ) Unable to determine (Please Define) ( ) Need to Discuss ( ) Not Agree The medical record reflects the following clinical findings, treatment, and risk factors. Clinical Indicators: As above Treatment: Serial hematology, neutropenic precautions. Risk Factors: Chemotherapy, MDS QUERY 2 OF 3 Admitted with "concerns regarding one week of disorientation that has begun after he started chemotherapy for myelodysplastic syndrome". Serum ammonia on admission of 45. Patient was treated with Lactulose. In your clinical opinion is this patient being managed for: ( ) Metabolic encephalopathy secondary to hyperammonemia ( ) Other explanation of clinical findings (Please Explain) ( x ) Unable to determine (Please Define) ( ) Need to Discuss ( ) Not Agree The medical record reflects the following clinical findings, treatment, and risk factors. Clinical Indicators: Alteration in mental status in the setting of hyperammonemia. Treatment:Patient was treated with Lactulose Risk Factors: Age, chemotherapy, other medications QUERY 3 OF 3 Documentation includes a diagnosis of CKD, not otherwise specified. Estimated GFR range from 16 to present of 24-39 ml/min. Please clarify as clinically appropriate. Thank you. In your clinical opinion is this patient being managed for: ( x ) Chronic kidney disease, stage 3-4 ( ) Other explanation of clinical findings (Please Explain) ( ) Unable to determine (Please Define) ( ) Need to Discuss ( ) Not Agree The medical record reflects the following clinical findings, treatment, and risk factors. Clinical Indicators: As above Treatment: Serial chemistries Risk Factors: Age, medications, atrial fibrillation, chronic systolic CHF, DM Please clarify and document your clinical opinion in the progress notes and discharge summary. Terms such as "probable", "suspected", "likely", "questionable", "possible", or "still to be ruled out" are acceptable. IF IN AGREEMENT, YOU MUST DOCUMENT ABOVE DIAGNOSTIC STATEMENT IN DAILY PROGRESS NOTES AND DISCHARGE SUMMARY. This document is not part of the patient's record. Thank You, Howard Jon, NICKIE [phone]
[2016-07-05 13:35] LABS: HEMATOCRIT 27.1 % (42-52); MEAN CELL VOLUME 103.8 fL (80-100); MEAN CORPUSCULAR HEMOGLOBIN 35.2 pg (25-34); MEAN CORPUSCULAR HGB CONC 33.9 g/dl (32-36); PLATELET COUNT 52 K/uL (130-400); RED BLOOD COUNT 2.61 M/uL (4.7-6.1); WHITE BLOOD COUNT 1.55 K/uL (4.8-10.8)
[2016-07-05] MEDS: VANCOMYCIN INJ 1,200 MG in SODIUM CHLORIDE 0.9% 250ML 250 ML IV SCH (13:43)
[2016-07-05 13:54] LABS: ANISOCYTOSIS PRESENT; BASO % 1.9 %; BASO ABS # 0.03 K/uL (0-0.2); COMPLETE YES; DOHLE BODIES OCCASIONAL; EOS % 5.8 %; IG% 1.3 %; LYMPH % 55.5 %; LYMPH ABS # 0.86 K/uL (1.2-3.4); MONO % 7.7 %; NEUT % 27.8 %; TOXIC GRANULATION 1+
--- NOTE | 2016-07-05 17:03 | Progress Note ---
Subjective Date of Service: Jul 05, 2016. Subjective Pt evaluation today including: conversation w/ patient, conversation w/ family , physical exam, chart review, lab review, review of studies, conversation w/ lean consultant, review of inpatient medication list Voiding: no voiding problems Problem List Medical Problems: (1) Shortness of breath Status: Acute Review of Systems Constitutional: No chills, No fever Eyes: No worsening of vision ENT: No hearing loss Respiratory: No cough, No shortness of breath, No sputum, No wheezing Cardiac: No chest pain, No edema, No orthopnea Abdomen: No constipation, No diarrhea, No pain, No vomiting Musculoskeletal: No joint pain Male : No dysuria Psychiatric: + insomnia, No depression symptoms Heme: No abnormal bleeding/bruising Endo: No fatigue Skin: No rash Medications Current Inpatient Medications Medications (Trade) Dose Ordered Sig/Evi Route Start Time Stop Time Status Last Admin Dose Admin Piperacillin Sod/ Tazobactam Sod/ Dextrose (Zosyn Iv/D5 100ml) 120 ml @ 30 mls/hr Q8H IV 07/05/16 02:00 07/11/16 19:59 07/05/16 11:17 30 MLS/HR Acetaminophen (Tylenol Tab) 650 mg Q4H PRN PO 07/04/16 18:45 08/03/16 18:44 Zolpidem Tartrate (Ambien Tab) 5 mg HSZ PRN PO 07/04/16 18:45 08/03/16 18:44 Acetaminophen (Tylenol Tab) 1,000 mg BID PO 07/04/16 21:00 08/03/16 20:59 07/05/16 08:07 1,000 MG Allopurinol (Zyloprim Tab) 300 mg QAM PO 07/05/16 08:00 08/04/16 08:59 07/05/16 08:08 300 MG Aspirin (Ecotrin Tab) 81 mg QAM PO 07/05/16 08:00 08/04/16 08:59 07/05/16 08:06 81 MG Atorvastatin Calcium (Lipitor Tab) 80 mg HS PO 07/04/16 21:00 08/03/16 20:59 07/04/16 22:49 80 MG Calcitriol (Rocaltrol Cap) 0.25 mcg MoWeFr@0900 PO 07/05/16 09:00 08/04/16 08:59 07/05/16 08:08 0.25 MCG Carvedilol (Coreg Tab) 25 mg BID PO 07/04/16 21:00 07/05/16 08:23 25 MG Cetirizine HCl (zyrTEC TAB) 10 mg DAILY PRN PO 07/04/16 18:45 08/03/16 18:44 Gabapentin (Neurontin Cap) 400 mg TID PO 07/04/16 21:00 08/03/16 20:59 07/05/16 13:40 400 MG Gemfibrozil (Lopid Tab) 600 mg QAM PO 07/05/16 08:00 08/04/16 08:59 07/05/16 08:08 600 MG Insulin Glargine (Lantus Solostar Pen) 10 unit QAM SC 07/05/16 08:00 08/04/16 08:59 07/05/16 08:21 10 UNIT Isosorbide Mononitrate (Imdur Ext Rel Tab) 120 mg QAM PO 07/05/16 08:00 08/04/16 08:59 07/05/16 08:09 120 MG Levothyroxine Sodium (Synthroid Tab) 100 mcg DAILYBB PO 07/05/16 06:30 08/04/16 06:59 07/05/16 06:24 100 MCG Nitroglycerin (Nitrostat Tab) 0.4 mg UD PRN UT 07/04/16 18:45 08/03/16 18:44 Tramadol HCl (Ultram Tab) 50 mg QID PRN PO 07/04/16 18:45 08/03/16 18:44 Trazodone HCl (Desyrel Tab) 100 mg HS PRN PO 07/04/16 18:45 08/03/16 18:44 Miscellaneous Information (Order Awaiting Action) 1 ea QS N/A 07/04/16 22:00 08/03/16 21:59 Cyanocobalamin (Vitamin B-12 Tab) 1,000 mcg QAM PO 07/05/16 08:00 08/04/16 08:59 07/05/16 08:07 1,000 MCG Ferrous Gluconate (Ferrous Gluconate Tab) 324 mg QAM PO 07/05/16 08:00 08/04/16 08:59 07/05/16 08:05 324 MG Pantoprazole Sodium (Protonix Tab) 40 mg QAM PO 07/05/16 08:00 08/04/16 08:59 07/05/16 08:08 40 MG Insulin Aspart (novoLOG ASPART) SLIDING SCALE If C... ACHS SC 07/04/16 21:00 08/03/16 20:59 07/05/16 13:42 4 UNITS Glucose (Glucose 40% Gel) UD PRN PO 07/04/16 18:45 08/03/16 18:44 Glucose (Glucose Chew Tab) 1 tabs UD PRN PO 07/04/16 18:45 08/03/16 18:44 Dextrose (Dextrose 50% 50ML Syringe) 50 ml UD PRN IV 07/04/16 18:45 08/03/16 18:44 Glucagon (Glucagon Inj) 1 mg UD PRN SQ 07/04/16 18:45 08/03/16 18:44 Piperacillin Sod/ Tazobactam Sod (Consult) 1 ea UD PRN N/A 07/04/16 19:45 08/03/16 19:44 Vancomycin HCl (Consult) 1 ea UD PRN N/A 07/04/16 19:45 08/03/16 19:44 Bumetanide (Bumex Tab) 4 mg BIDM PO 07/05/16 08:00 08/04/16 07:59 07/05/16 08:05 4 MG Potassium Chloride (Klor-Con Tab) 40 meq BIDM PO 07/05/16 08:00 08/04/16 07:59 07/05/16 08:06 40 MEQ Lorazepam (Ativan Tab) 1 mg HS PRN PO 07/04/16 22:30 08/03/16 22:29 Lorazepam 0.5 mg 0.5 mg UD PRN PO 07/04/16 22:15 08/03/16 22:14 07/04/16 23:36 0.5 MG Vancomycin HCl/ Sodium Chloride (Vancomycin Inj/ Nss 250ml) 274 ml @ 125 mls/hr Q24H IV 07/05/16 14:00 07/11/16 19:59 07/05/16 13:43 125 MLS/HR Objective Vital Signs Date Time Temp Pulse Resp B/P Pulse Ox O2 Delivery O2 Flow Rate FiO2 07/05/16 15:32 36.7 85 16 104/62 94 Room Air 07/05/16 08:00 93 Room Air 07/05/16 07:22 36.6 83 16 111/68 93 Room Air 07/05/16 02:57 36.3 84 20 100/61 94 Room Air 07/05/16 00:00 Room Air 07/04/16 23:08 36.6 77 16 103/66 95 Room Air 07/04/16 22:46 69 113/66 07/04/16 21:20 36.4 75 18 116/67 96 Room Air 07/04/16 19:12 73 21 113/70 96 Room Air Physical Exam General Appearance: + mild distress, + obese Eyes: normal inspection, PERRL, EOMI ENT: normal ENT inspection, hearing grossly normal Neck: supple Respiratory/Chest: lungs clear, normal breath sounds, no respiratory distress, no accessory muscle use Cardiovascular: regular rate, rhythm, no edema, no gallop, no murmur Abdomen: normal bowel sounds, non tender, soft, + pertinent finding (ulcer , dry 2X3 cm in LLQ) Extremities: normal range of motion, non-tender, normal inspection Neurologic/Psychiatric: sign maker II-XII nml as tested, no motor/sensory deficits, alert, normal mood/affect, + disoriented Skin: normal color, warm/dry Laboratory Results Last 24 Hours Test 07/04/16 17:20 07/04/16 17:24 07/04/16 17:30 07/04/16 17:55 White Blood Count 1.91 K/uL Red Blood Count 2.98 M/uL Hemoglobin 10.4 g/dL Hematocrit 31.1 % Mean Corpuscular Volume 104.4 fL Mean Corpuscular Hemoglobin 34.9 pg Mean Corpuscular Hemoglobin Concent 33.4 g/dl Platelet Count 79 K/uL Mean Platelet Volume 9.9 fL Neutrophils (%) (Auto) 40.4 % Lymphocytes (%) (Auto) 49.2 % Monocytes (%) (Auto) 5.2 % Eosinophils (%) (Auto) 3.7 % Basophils (%) (Auto) 1.0 % Neutrophils # (Auto) 0.77 K/uL Lymphocytes # (Auto) 0.94 K/uL Monocytes # (Auto) 0.10 K/uL Eosinophils # (Auto) 0.07 K/uL Basophils # (Auto) 0.02 K/uL RDW Standard Deviation 80.5 fL RDW Coefficient of Variation 21.2 % Immature Granulocyte % (Auto) 0.5 % Immature Granulocyte # (Auto) 0.01 K/uL Toxic Granulation 3+ Dohle Bodies OCCASIONAL Anisocytosis PRESENT Tear Drop Cells OCCASIONAL Schistocytes OCCASIONAL Prothrombin Time 13.1 SECONDS Prothromb Time International Ratio 1.2 Activated Partial Thromboplast Time 27.5 SECONDS Partial Thromboplastin Ratio 1.1 Sodium Level 141 mmol/L Potassium Level 3.9 mmol/L Chloride Level 100 mmol/L Carbon Dioxide Level 28 mmol/L Anion Gap 13.0 mmol/L Blood Urea Nitrogen 47 mg/dl Creatinine 2.20 mg/dl Estimated GFR () 31.0 Estimated GFR (Non- 26.7 BUN/Creatinine Ratio 21.4 Random Glucose 199 mg/dl Calcium Level 9.2 mg/dl Total Bilirubin 2.0 mg/dl Aspartate Amino Transf (AST/SGOT) 23 U/L Alanine Aminotransferase (ALT/SGPT) 11 U/L Alkaline Phosphatase 97 U/L Total Creatine Kinase 103 U/L Creatine Kinase MB 1.2 ng/ml Creatine Kinase MB Ratio 1.2 Troponin I 0.043 ng/ml Total Protein 6.5 gm/dl Albumin 3.0 gm/dl Globulin 3.5 gm/dl Albumin/Globulin Ratio 0.9 Ammonia 45.0 umol/L Bedside Lactic Acid Venous 1.61 mmol/L Urine Color YELLOW Urine Appearance CLEAR Urine pH 6.0 Urine Specific Sondheimer 1.008 Urine Protein NEG Urine Glucose (UA) NEG Urine Ketones NEG Urine Occult Blood NEG Urine Nitrite NEG Urine Bilirubin NEG Urine Urobilinogen NEG Urine Leukocyte Esterase NEG Test 07/04/16 19:16 07/04/16 22:44 07/05/16 05:17 07/05/16 08:01 Bedside Glucose 176 mg/dl 132 mg/dl 115 mg/dl Creatinine 2.00 mg/dl Est Creatinine Clear Calc Drug Dose 30.7 ml/min Estimated GFR () 34.7 Estimated GFR (Non- 30.0 Random Vancomycin Level 15.6 mcg/ml Test 07/05/16 11:39 07/05/16 13:25 Bedside Glucose 171 mg/dl White Blood Count 1.55 K/uL Red Blood Count 2.61 M/uL Hemoglobin 9.2 g/dL Hematocrit 27.1 % Mean Corpuscular Volume 103.8 fL Mean Corpuscular Hemoglobin 35.2 pg Mean Corpuscular Hemoglobin Concent 33.9 g/dl Platelet Count 52 K/uL Mean Platelet Volume 9.0 fL Neutrophils (%) (Auto) 27.8 % Lymphocytes (%) (Auto) 55.5 % Monocytes (%) (Auto) 7.7 % Eosinophils (%) (Auto) 5.8 % Basophils (%) (Auto) 1.9 % Neutrophils # (Auto) 0.43 K/uL Lymphocytes # (Auto) 0.86 K/uL Monocytes # (Auto) 0.12 K/uL Eosinophils # (Auto) 0.09 K/uL Basophils # (Auto) 0.03 K/uL RDW Standard Deviation 79.3 fL RDW Coefficient of Variation 20.9 % Immature Granulocyte % (Auto) 1.3 % Immature Granulocyte # (Auto) 0.02 K/uL Nucleated RBC Absolute Count (auto) 0.02 K/uL Nucleated Red Blood Cells % 1.1 % Toxic Granulation 1+ Dohle Bodies OCCASIONAL Anisocytosis PRESENT Macrocytosis PRESENT Lactic Acid Level 1.3 mmol/L Assessment and Plan 85 years old man who was recently diagnosed with myelodysplastic syndrome (7% blasts) recently had started chemotherapy. presented to ED with gradual onset confusion and change in mental status. Neutropenia/abdominal wall cellulitis- Unlikely his confusion is secondary to that but continue vancomycin / Zosyn Urine cultures and blood cultures are pending. D/W family who are hesitant to perform LP D/W Dr. Hardy, if we get an LP we will send for cytology R/O blasts in CSF Change in mental status likely metabolic encephalopathy due some occult infection versus worsening dementia ordered procalcitonin family considering LP if no improvement CAD/Atrial fibrillation/nonischemic cardiomyopathy/chronic systolic CHF- continue carvedilol 25 mg by mouth twice a day with hold parameters aspirin 81 mg by mouth every morning Imdur extended release 120 mg by mouth every morning nitroglycerin sublingual when necessary continue Bumex 4 mg by mouth twice a day, and potassium chloride 40 mEq by mouth twice a day. Diabetes mellitus continue holding glimepiride and Onglyza continue Lantus Solostar 10 units subcutaneous every morning. Accu-Cheks before meals and at bedtime with NovoLog coverage. Hypercholesterolemia--continue atorvastatin 80 mg by mouth at bedtime, and gemfibrozil 600 mg by mouth every morning. Gout--continue allopurinol 300 mg by mouth every morning. Hypothyroidism--continue levothyroxine sodium at 100 g by mouth every morning. GERD--change omeprazole 20 mg by mouth daily to pantoprazole 40 mg by mouth daily. B12 deficiency--continue vitamin B-12 1000 g by mouth daily supplement. GI dysmotility--continue Linzess at 145 g by mouth daily. Anxiety/insomnia--continue lorazepam 1 mg by mouth at bedtime, and 0.5 mg by mouth during the night if wakes up. We'll hold trazodone 100 mg by mouth at bedtime associated with family discussion. Peripheral neuropathy--continue gabapentin 400 mg by mouth 3 times a day. Pain management--continue tramadol 50 mg by mouth 4 times a day when necessary. Nausea--change Zofran to 4 mg IV every 6 hours when necessary with repeat in 30 minutes if needed. Allergy--continue cetirizine 10 mg by mouth daily when necessary.
[2016-07-05] MEDS: ATORVASTATIN 40 MG TAB PO SCH (20:17)
[2016-07-06] VITALS: O2SAT 93
[2016-07-06] MEDS: LORAZEPAM 0.5 MG TAB PO PRN (02:30)
[2016-07-06] MEDS: PIPERACILL/TAZOBAC IV 4.5 GM in DEXTROSE 5% 100ML 100 ML IV SCH ×3 (02:31→18:09)
[2016-07-06] MEDS: LEVOTHYROXINE 100 MCG TAB PO SCH (06:23)
[2016-07-06 06:44] LABS: HEMATOCRIT 27.9 % (42-52); MEAN CELL VOLUME 103.7 fL (80-100); MEAN CORPUSCULAR HEMOGLOBIN 34.6 pg (25-34); MEAN CORPUSCULAR HGB CONC 33.3 g/dl (32-36); MEAN PLATELET VOLUME 9.2 fL (7.4-10.4); PLATELET COUNT 47 K/uL (130-400); RED BLOOD COUNT 2.69 M/uL (4.7-6.1); WHITE BLOOD COUNT 1.67 K/uL (4.8-10.8)
[2016-07-06 06:59] VITALS: BP 100/63; PULSE 81; TEMP 36.2; O2SAT 91
[2016-07-06 07:16] LABS: ANISOCYTOSIS PRESENT; BASO % 2.4 %; BASO ABS # 0.04 K/uL (0-0.2); COMPLETE YES; EOS % 5.4 %; LYMPH % 66.5 %; LYMPH ABS # 1.11 K/uL (1.2-3.4); MONO % 7.2 %; NEUT % 18.5 %; SPHEROCYTE OCCASIONAL; TOXIC GRANULATION 1+
[2016-07-06 07:27] LABS: ALB/GLOB RATIO 0.8 (0.9-2); BUN/CREATININE RATIO 18.2 (10-20); CALCIUM 8.9 mg/dl (8.5-10.1); CREATININE 2.1 mg/dl (0.60-1.40)
[2016-07-06 08:30] VITALS: O2SAT 91
[2016-07-06] MEDS: CARVEDILOL 25 MG TAB PO SCH ×2 (08:30→08:32)
[2016-07-06] MEDS: POTASSIUM CHLORIDE 20 MEQ TABCR PO SCH ×3 (08:30→17:49)
[2016-07-06] MEDS: GABAPENTIN 400 MG CAP PO SCH ×4 (08:30→19:34)
[2016-07-06] MEDS: ACETAMINOPHEN 500 MG TAB PO SCH ×3 (08:30→19:34)
[2016-07-06] MEDS: ISOSORBIDE MONONITRATE 60 MG TABCR PO SCH (08:31)
[2016-07-06] MEDS: BUMETANIDE 1 MG TAB PO SCH (08:31)
[2016-07-06] MEDS: GEMFIBROZIL 600 MG TAB PO SCH ×2 (08:32→13:56)
[2016-07-06] MEDS: ALLOPURINOL 300 MG TAB PO SCH ×2 (08:33→13:56)
[2016-07-06] MEDS: CYANOCOBALAMIN 500 MCG TAB (VIT B-12) PO SCH ×2 (08:33→13:57)
[2016-07-06] MEDS: FERROUS GLUCONATE 324 MG TAB PO SCH (08:33)
[2016-07-06] MEDS: ASPIRIN 81 MG ECTAB PO SCH ×2 (08:33→13:56)
[2016-07-06] MEDS: PANTOprazole SOD 40 MG TAB PO SCH ×2 (08:33→13:58)
[2016-07-06] MEDS: INSULIN ASPART 100 UNITS/ML 3 ML PEN SC SCH ×4 (08:34→21:20)
[2016-07-06] MEDS: LINZESS~ORDER AWAITING ACTION SCH ×4 (08:35→19:40)
[2016-07-06] MEDS ORDERED: POTASSIUM CHLORIDE 20MEQ/15ML 473ML PO ONE (09:30)
[2016-07-06] MEDS: INSULIN GLARGINE SOLOSTAR 100 UNITS/ML 3 ML PEN SC SCH (10:15)
--- NOTE | 2016-07-06 13:22 | DIAGNOSTIC IMAGING REPORT ---
CT OF THE CHEST WITHOUT IV CONTRAST CLINICAL HISTORY: SOB with severe neutropenia COMPARISON STUDY: 04/29/2016 CT DOSE: 486.47 mGycm TECHNIQUE: CT of the thorax was performed from the thoracic inlet to the lung bases. Images are reviewed in the axial, sagittal, and coronal planes. IV contrast was not administered for this examination. FINDINGS: Thyroid: Imaged portions of the thyroid gland are normal in appearance. Thoracic aorta: The thoracic aorta is normal in course and caliber, noting standard 3 vessel arch anatomy. Heart: The heart is enlarged with coronary artery calcifications Lungs and pleural spaces: There is a small right pleural effusion and trace left pleural effusion. There is moderate respiratory motion artifact. There is no focal pulmonary consolidation. Mediastinum: May subtle lymph nodes are maintained the upper limits of normal in size. Kandi: There is no pathologic hilar adenopathy given the limitations of a noncontrast study Axilla: Clear. Upper abdomen: Since the prior study, the patient has developed moderate ascites. Skeletal structures: There are no lytic or blastic osseous lesions. IMPRESSION: 1. Moderate cardiomegaly and coronary artery calcifications 2. Small right pleural effusion and trace left pleural effusion 3. Moderate ascites 4. Interval resolution of the previously described right middle lobe and right lower lobe airspace opacities. Electronically signed by: Juan A Pleitez M.D. 07/06/2016 1:21 PM Dictated Date/Time: 07/06/2016 1:16 PM
--- NOTE | 2016-07-06 13:43 | DIAGNOSTIC IMAGING REPORT ---
CT SCAN OF THE ABDOMEN AND PELVIS WITHOUT IV CONTRAST CLINICAL HISTORY: Generalized abdominal pain. Neutropenia. COMPARISON STUDY: Abdominal CT dated 08/18/2014. TECHNIQUE: CT scan of the abdomen and pelvis is performed from the lung bases to the proximal femora. Images are reviewed in the axial, sagittal, and coronal planes. IV contrast was not administered for this examination. Automated dose control exposure was utilized. CT DOSE: 1211.08 mGycm FINDINGS: Lung bases: The heart is markedly enlarged and without pericardial effusion. The coronary arteries are densely calcified. Pacemaker leads are noted. There are trace pleural effusions with bibasilar atelectasis. No airspace consolidation is seen typical for pneumonia. Liver: The unenhanced liver demonstrates early changes of cirrhosis. There is nodularity of the surface contour, enlargement of the left lobe, and heterogeneous attenuation. There is no intrahepatic biliary ductal dilatation. Gallbladder: Unremarkable. Spleen: Normal in size and attenuation. Pancreas: The unenhanced pancreas is atrophic and grossly unremarkable. Adrenal glands: Unremarkable. Kidneys: The unenhanced kidneys are atrophic and without hydronephrosis. There are no renal calculi identified. There is no evidence of contour deforming renal mass lesion. Abdominal vasculature: The abdominal aorta is normal in course and caliber noting advanced atherosclerotic calcification. Bowel: The small bowel and colon are normal in course and caliber. There is moderate colonic diverticulosis without CT evidence of acute diverticulitis. Mild colonic fecal retention is observed. The appendix is normal as visualized. Peritoneum: There is a small to moderate volume of abdominopelvic ascites. No intraperitoneal free air is seen. Lymphadenopathy: None. Pelvic viscera: The prostate gland is diminutive. The bladder is normal as visualized. Skeletal structures: The skeletal structures are osteopenic. There is moderate lumbosacral spondylosis. No lytic or blastic lesions are seen. Degenerative change and partial fusion is seen involving the sacroiliac joints. 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 Suboptimal examination without IV contrast. 2. Cardiomegaly. Small pleural effusions are identified. 3. The appearance of the liver suggests early changes of cirrhosis. 4. There is a small to moderate volume of abdominopelvic ascites. 5. Moderate diverticulosis of the left colon without clear CT evidence of acute diverticulitis. 6. Additional changes as above. Electronically signed by: Jp Taylor M.D. 07/06/2016 1:41 PM Dictated Date/Time: 07/06/2016 1:35 PM
[2016-07-06] MEDS: VANCOMYCIN INJ 1,200 MG in SODIUM CHLORIDE 0.9% 250ML 250 ML IV SCH (13:58)
[2016-07-06 15:15] VITALS: BP 107/60; PULSE 83; TEMP 36.6; O2SAT 90
[2016-07-06 15:57] VITALS: O2SAT 91
--- NOTE | 2016-07-06 17:48 | Progress Note ---
Subjective Date of Service: Jul 06, 2016. Subjective Pt evaluation today including: conversation w/ patient, conversation w/ family , physical exam, chart review, lab review Problem List Medical Problems: (1) Shortness of breath Status: Acute Review of Systems unobtainable due to confusion status Objective Vital Signs Date Time Temp Pulse Resp B/P Pulse Ox O2 Delivery O2 Flow Rate FiO2 07/06/16 15:57 91 Room Air 07/06/16 15:15 36.6 83 16 107/60 90 Room Air 07/06/16 08:30 91 Room Air 07/06/16 06:59 36.2 81 18 100/63 91 Room Air 07/06/16 00:00 93 Room Air 07/05/16 23:40 37.3 74 18 97/59 93 Room Air 07/05/16 20:18 79 112/75 07/05/16 20:00 94 Room Air Physical Exam General Appearance: + mild distress Eyes: PERRL, EOMI ENT: hearing grossly normal Neck: supple Respiratory/Chest: chest non-tender, lungs clear, normal breath sounds, no respiratory distress, no accessory muscle use Cardiovascular: regular rate, rhythm, no edema, no gallop, no murmur Abdomen: soft, + distended, + tenderness Extremities: normal range of motion, non-tender, normal inspection, no pedal edema Neurologic/Psychiatric: consumer experience consultant II-XII nml as tested, no motor/sensory deficits, + disoriented Skin: normal color, warm/dry, no rash Lymphatic: no adenopathy Laboratory Results Last 24 Hours Test 07/05/16 20:26 07/06/16 06:34 07/06/16 08:03 07/06/16 11:46 Bedside Glucose 180 mg/dl 142 mg/dl 137 mg/dl White Blood Count 1.67 K/uL Red Blood Count 2.69 M/uL Hemoglobin 9.3 g/dL Hematocrit 27.9 % Mean Corpuscular Volume 103.7 fL Mean Corpuscular Hemoglobin 34.6 pg Mean Corpuscular Hemoglobin Concent 33.3 g/dl Platelet Count 47 K/uL Mean Platelet Volume 9.2 fL Neutrophils (%) (Auto) 18.5 % Lymphocytes (%) (Auto) 66.5 % Monocytes (%) (Auto) 7.2 % Eosinophils (%) (Auto) 5.4 % Basophils (%) (Auto) 2.4 % Neutrophils # (Auto) 0.31 K/uL Lymphocytes # (Auto) 1.11 K/uL Monocytes # (Auto) 0.12 K/uL Eosinophils # (Auto) 0.09 K/uL Basophils # (Auto) 0.04 K/uL RDW Standard Deviation 77.5 fL RDW Coefficient of Variation 20.7 % Immature Granulocyte % (Auto) 0.0 % Immature Granulocyte # (Auto) 0.00 K/uL Toxic Granulation 1+ Anisocytosis PRESENT Macrocytosis PRESENT Spherocytes OCCASIONAL Sodium Level 142 mmol/L Potassium Level 3.0 mmol/L Chloride Level 100 mmol/L Carbon Dioxide Level 30 mmol/L Anion Gap 12.0 mmol/L Blood Urea Nitrogen 38 mg/dl Creatinine 2.10 mg/dl Est Creatinine Clear Calc Drug Dose 29.3 ml/min Estimated GFR () 32.7 Estimated GFR (Non- 28.3 BUN/Creatinine Ratio 18.2 Random Glucose 125 mg/dl Lactic Acid Level 1.4 mmol/L Calcium Level 8.9 mg/dl Phosphorus Level 3.0 mg/dl Magnesium Level 2.0 mg/dl Total Bilirubin 1.9 mg/dl Aspartate Amino Transf (AST/SGOT) 20 U/L Alanine Aminotransferase (ALT/SGPT) 7 U/L Alkaline Phosphatase 80 U/L Total Protein 6.0 gm/dl Albumin 2.6 gm/dl Globulin 3.4 gm/dl Albumin/Globulin Ratio 0.8 Test 07/06/16 16:28 Bedside Glucose 157 mg/dl Assessment and Plan 85 years old man who was recently diagnosed with myelodysplastic syndrome (7% blasts) recently had started chemotherapy. presented to ED with gradual onset confusion and change in mental status. Neutropenia/abdominal wall cellulitis- Unlikely his confusion is secondary to that but continue vancomycin / Zosyn Urine cultures and blood cultures are pending. D/W family who are hesitant to perform LP D/W Dr. Hardy, if we get an LP we will send for cytology R/O blasts in CSF, still awaiting for family to decide Change in mental status likely metabolic encephalopathy due some occult infection versus worsening dementia procalcitonin is 0.13 family considering LP if no improvement minimal elevation in Ammonia level but its all what I got will treat with rifaximine/lactulose CAD/Atrial fibrillation/nonischemic cardiomyopathy/chronic systolic CHF- continue carvedilol 25 mg by mouth twice a day with hold parameters aspirin 81 mg by mouth every morning Imdur extended release 120 mg by mouth every morning nitroglycerin sublingual when necessary continue Bumex 4 mg by mouth twice a day, and potassium chloride 40 mEq by mouth twice a day. Diabetes mellitus continue holding glimepiride and Onglyza continue Lantus Solostar 10 units subcutaneous every morning. Accu-Cheks before meals and at bedtime with NovoLog coverage. Hypercholesterolemia--continue atorvastatin 80 mg by mouth at bedtime, and gemfibrozil 600 mg by mouth every morning. Gout--continue allopurinol 300 mg by mouth every morning. Hypothyroidism--continue levothyroxine sodium at 100 g by mouth every morning. GERD--change omeprazole 20 mg by mouth daily to pantoprazole 40 mg by mouth daily. B12 deficiency--continue vitamin B-12 1000 g by mouth daily supplement. GI dysmotility--continue Linzess at 145 g by mouth daily.he has abdominal pain today on exam CT abdomen/pelvis/chest was negative as below Cardiomegaly. Small pleural effusions are identified. 3. The appearance of the liver suggests early changes of cirrhosis. 4. There is a small to moderate volume of abdominopelvic ascites. 5. Moderate diverticulosis of the left colon without clear CT evidence of acute diverticulitis.Cardiomegaly. Small pleural effusions are identified. 3. The appearance of the liver suggests early changes of cirrhosis. 4. There is a small to moderate volume of abdominopelvic ascites. 5. Moderate diverticulosis of the left colon without clear CT evidence of acute diverticulitis. Anxiety/insomnia--continue lorazepam 1 mg by mouth at bedtime, and 0.5 mg by mouth during the night if wakes up. We'll hold trazodone 100 mg by mouth at bedtime associated with family discussion. Peripheral neuropathy--continue gabapentin 400 mg by mouth 3 times a day. Pain management--continue tramadol 50 mg by mouth 4 times a day when necessary. Nausea--change Zofran to 4 mg IV every 6 hours when necessary with repeat in 30 minutes if needed. Allergy--continue cetirizine 10 mg by mouth daily when necessary.
[2016-07-06] MEDS: LACTULOSE SYRUP 30 GM/45 ML UDP PO SCH ×2 (18:44→23:01)
[2016-07-06] MEDS: ATORVASTATIN 40 MG TAB PO SCH (19:35)
[2016-07-06] MEDS: RIFAXIMIN TAB 550 MG TAB PO SCH (19:38)
[2016-07-06 23:39] VITALS: BP 100/64; PULSE 76; TEMP 36.8; O2SAT 91
[2016-07-07] MEDS: PIPERACILL/TAZOBAC IV 4.5 GM in DEXTROSE 5% 100ML 100 ML IV SCH ×3 (01:30→18:13)
[2016-07-07] MEDS: LACTULOSE SYRUP 30 GM/45 ML UDP PO SCH ×3 (05:32→18:10)
[2016-07-07] MEDS: LEVOTHYROXINE 100 MCG TAB PO SCH (06:16)
[2016-07-07 06:40] LABS: MEAN CELL VOLUME 102.6 fL (80-100); MEAN CORPUSCULAR HEMOGLOBIN 34.4 pg (25-34); MEAN CORPUSCULAR HGB CONC 33.6 g/dl (32-36); MEAN PLATELET VOLUME 12.4 fL (7.4-10.4); PLATELET COUNT 51 K/uL (130-400); RED BLOOD COUNT 2.73 M/uL (4.7-6.1); WHITE BLOOD COUNT 1.55 K/uL (4.8-10.8)
[2016-07-07 06:50] LABS: BUN/CREATININE RATIO 17.6 (10-20); CALCIUM 8.5 mg/dl (8.5-10.1); CREATININE 2.1 mg/dl (0.60-1.40); MAGNESIUM 1.8 mg/dl (1.8-2.4); POTASSIUM 2.9 mmol/L (3.5-5.1)
[2016-07-07 06:53] LABS: ALB/GLOB RATIO 0.7 (0.9-2); PHOSPHORUS 2.9 mg/dl (2.5-4.9)
[2016-07-07 07:31] LABS: ANISOCYTOSIS PRESENT; LARGE PLATELETS 1+; TOXIC GRANULATION 2+
[2016-07-07 07:34] LABS: COMPLETE YES; EOSINOPHIL % 7.8 %; LYMPHOCYTE % 64.4 %; NEUTROPHILS % 13.9 %
[2016-07-07] MEDS: ASPIRIN 81 MG ECTAB PO SCH (07:45)
[2016-07-07] MEDS: ACETAMINOPHEN 500 MG TAB PO SCH ×2 (07:46→20:49)
[2016-07-07] MEDS: GABAPENTIN 400 MG CAP PO SCH ×3 (07:46→20:49)
[2016-07-07] MEDS: PANTOprazole SOD 40 MG TAB PO SCH (07:46)
[2016-07-07] MEDS: RIFAXIMIN TAB 550 MG TAB PO SCH ×2 (07:46→20:49)
[2016-07-07] MEDS: CYANOCOBALAMIN 500 MCG TAB (VIT B-12) PO SCH (07:46)
[2016-07-07] MEDS: POTASSIUM CHLORIDE 20 MEQ TABCR PO SCH ×2 (07:46→18:00)
[2016-07-07] MEDS: GEMFIBROZIL 600 MG TAB PO SCH (07:46)
[2016-07-07] MEDS: CALCITRIOL 0.25 MCG CAP PO SCH (07:47)
[2016-07-07 07:51] VITALS: BP 106/70; PULSE 77; TEMP 36.8; O2SAT 97
[2016-07-07] MEDS: LINZESS~ORDER AWAITING ACTION SCH ×2 (08:00→16:00)
[2016-07-07] MEDS: INSULIN ASPART 100 UNITS/ML 3 ML PEN SC SCH ×4 (09:22→20:53)
[2016-07-07 13:03] VITALS: BP 107/72; PULSE 75
[2016-07-07 13:15] VITALS: BP 103/70; PULSE 77; O2SAT 99
[2016-07-07] MEDS ORDERED: VANCOMYCIN TROUGH SCH (13:30)
[2016-07-07] MEDS: VANCOMYCIN INJ 1,200 MG in SODIUM CHLORIDE 0.9% 250ML 250 ML IV SCH (14:30)
--- NOTE | 2016-07-07 15:30 | Pharmacy Progress Note ---
Pharmacy Antibiotic Prog Note Date of Service: Jul 07, 2016. Subjective: The patient is currently receiving Vancomycin 1200 mg IV every 24 hours. The patient is currently on day # 4 of Vancomycin IV therapy. Objective: Height (Feet): 6 Height (Inches): 0 Weight (Kilograms): 89.000 Levels: Item Value Date Time Vancomycin Level Trough 19.9 mcg/ml 07/07/16 1342 Lab Results (24hrs): Laboratory Tests Test 07/07/16 05:44 BUN/Creatinine Ratio 17.6 Blood Urea Nitrogen 37 mg/dl Creatinine 2.10 mg/dl White Blood Count 1.55 K/uL Red Blood Count 2.73 M/uL Hemoglobin 9.4 g/dL Hematocrit 28.0 % Mean Corpuscular Volume 102.6 fL Mean Corpuscular Hemoglobin 34.4 pg Mean Corpuscular Hemoglobin Concent 33.6 g/dl Platelet Count 51 K/uL Mean Platelet Volume 12.4 fL Micro Results: Item Value Date Time Urine Culture - Final Complete 07/04/16 1755 Urine,Catheterized NO GROWTH - LESS THAN 1,000 COLONIES/ML Blood Culture - Preliminary Resulted 07/04/16 1722 Blood NO GROWTH TO DATE. Blood Culture - Preliminary Resulted 07/04/16 1720 Blood NO GROWTH TO DATE. Assessment & Plan: Assessment 85 year old male receiving empiric Vancomycin and Zosyn for abdominal wall cellulitis in the setting of chemotherapy induced neutropenia. Patient is receiving chemotherapy for MDS and has a h/o CKD. No previously documented multidrug resistant pathogens. Plan Vancomycin IV dosing: * Vancomycin trough level drawn this morning is slightly supratherapeutic. * Scr is at baseline. * Decrease dose slightly to Vancomycin 1000mg IV q24h * Goal trough level estimate: ~ 15 mcg/mL. * No further vancomycin levels have been ordered at this time, but if patient's therapy continues, will reassess the need for additional monitoring. Zosyn IV * Continue 4.5g IV every 8 hours for CrCl > 20 ml/min. Pharmacy will continue to follow and will adjust dose/frequency as necessary. Thank you
[2016-07-07 15:46] VITALS: BP 95/59; PULSE 83; TEMP 36.4; O2SAT 98
[2016-07-07 15:50] VITALS: O2SAT 98
--- NOTE | 2016-07-07 18:31 | Progress Note ---
Subjective Date of Service: Jul 07, 2016. Subjective Pt evaluation today including: conversation w/ patient, conversation w/ family , physical exam, chart review, lab review Problem List Medical Problems: (1) Shortness of breath Status: Acute Review of Systems confused denied any pain, rest of ROS is negative Medications Current Inpatient Medications Medications (Trade) Dose Ordered Sig/Evi Route Start Time Stop Time Status Last Admin Dose Admin Piperacillin Sod/ Tazobactam Sod/ Dextrose (Zosyn Iv/D5 100ml) 120 ml @ 30 mls/hr Q8H IV 07/05/16 02:00 07/11/16 19:59 07/07/16 18:13 30 MLS/HR Acetaminophen (Tylenol Tab) 650 mg Q4H PRN PO 07/04/16 18:45 08/03/16 18:44 07/07/16 11:12 650 MG Zolpidem Tartrate (Ambien Tab) 5 mg HSZ PRN PO 07/04/16 18:45 08/03/16 18:44 07/06/16 00:04 5 MG Acetaminophen (Tylenol Tab) 1,000 mg BID PO 07/04/16 21:00 08/03/16 20:59 07/07/16 07:46 1,000 MG Allopurinol (Zyloprim Tab) 300 mg QAM PO 07/05/16 08:00 08/04/16 08:59 07/06/16 13:56 300 MG Aspirin (Ecotrin Tab) 81 mg QAM PO 07/05/16 08:00 08/04/16 08:59 07/07/16 07:45 81 MG Atorvastatin Calcium (Lipitor Tab) 80 mg HS PO 07/04/16 21:00 08/03/16 20:59 07/06/16 19:35 80 MG Calcitriol (Rocaltrol Cap) 0.25 mcg MoWeFr@0900 PO 07/05/16 09:00 08/04/16 08:59 07/07/16 07:47 0.25 MCG Cetirizine HCl (zyrTEC TAB) 10 mg DAILY PRN PO 07/04/16 18:45 08/03/16 18:44 Gabapentin (Neurontin Cap) 400 mg TID PO 07/04/16 21:00 08/03/16 20:59 07/07/16 14:30 400 MG Gemfibrozil (Lopid Tab) 600 mg QAM PO 07/05/16 08:00 08/04/16 08:59 07/07/16 07:46 600 MG Levothyroxine Sodium (Synthroid Tab) 100 mcg DAILYBB PO 07/05/16 06:30 08/04/16 06:59 07/07/16 06:16 100 MCG Nitroglycerin (Nitrostat Tab) 0.4 mg UD PRN UT 07/04/16 18:45 08/03/16 18:44 Tramadol HCl (Ultram Tab) 50 mg QID PRN PO 07/04/16 18:45 08/03/16 18:44 07/06/16 02:31 50 MG Trazodone HCl (Desyrel Tab) 100 mg HS PRN PO 07/04/16 18:45 08/03/16 18:44 07/06/16 00:04 100 MG Miscellaneous Information (Order Awaiting Action) 1 ea QS N/A 07/04/16 22:00 08/03/16 21:59 Cyanocobalamin (Vitamin B-12 Tab) 1,000 mcg QAM PO 07/05/16 08:00 08/04/16 08:59 07/07/16 07:46 1,000 MCG Pantoprazole Sodium (Protonix Tab) 40 mg QAM PO 07/05/16 08:00 08/04/16 08:59 07/07/16 07:46 40 MG Insulin Aspart (novoLOG ASPART) SLIDING SCALE If C... ACHS SC 07/04/16 21:00 08/03/16 20:59 07/07/16 18:10 2 UNITS Glucose (Glucose 40% Gel) UD PRN PO 07/04/16 18:45 08/03/16 18:44 Glucose (Glucose Chew Tab) 1 tabs UD PRN PO 07/04/16 18:45 08/03/16 18:44 Dextrose (Dextrose 50% 50ML Syringe) 50 ml UD PRN IV 07/04/16 18:45 08/03/16 18:44 Glucagon (Glucagon Inj) 1 mg UD PRN SQ 07/04/16 18:45 08/03/16 18:44 Piperacillin Sod/ Tazobactam Sod (Consult) 1 ea UD PRN N/A 07/04/16 19:45 08/03/16 19:44 Vancomycin HCl (Consult) 1 ea UD PRN N/A 07/04/16 19:45 08/03/16 19:44 Potassium Chloride (Klor-Con Tab) 40 meq BIDM PO 07/05/16 08:00 08/04/16 07:59 07/07/16 18:00 40 MEQ Lorazepam (Ativan Tab) 1 mg HS PRN PO 07/04/16 22:30 08/03/16 22:29 07/05/16 20:13 1 MG Lorazepam (Ativan Tab) 0.5 mg UD PRN PO 07/04/16 22:15 08/03/16 22:14 07/06/16 02:30 0.5 MG Lactulose (Chronulac Syrup) 30 gm Q6 PO 07/06/16 17:42 08/05/16 17:41 07/07/16 18:10 30 GM Rifaximin 550 mg 550 mg BID PO 07/06/16 20:00 08/05/16 19:59 07/07/16 07:46 550 MG Vancomycin HCl/ Sodium Chloride (Vancomycin Inj/ Nss 250ml) 270 ml @ 125 mls/hr Q24H IV 07/08/16 14:00 07/11/16 19:59 Objective Vital Signs Date Time Temp Pulse Resp B/P Pulse Ox O2 Delivery O2 Flow Rate FiO2 07/07/16 15:50 98 Room Air 2.0 07/07/16 15:46 36.4 83 16 95/59 98 Nasal Cannula 2.0 07/07/16 13:15 77 103/70 99 Nasal Cannula 2.0 07/07/16 13:03 75 20 107/72 07/07/16 10:52 Room Air 07/07/16 07:51 36.8 77 16 106/70 97 Room Air 07/07/16 00:00 Room Air 07/06/16 23:39 36.8 76 20 100/64 91 Room Air 07/06/16 20:22 Room Air Physical Exam General Appearance: + mild distress Eyes: normal inspection, PERRL, EOMI ENT: normal ENT inspection, hearing grossly normal Neck: supple Respiratory/Chest: chest non-tender, lungs clear, normal breath sounds, no respiratory distress Cardiovascular: regular rate, rhythm, no edema, no gallop, no JVD, no murmur Abdomen: normal bowel sounds, non tender, soft, no organomegaly Extremities: normal range of motion, non-tender, normal inspection, no pedal edema 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, no motor/sensory deficits, + disoriented, + pertinent finding (slightly lethargic but better than yesterday) Skin: normal color, warm/dry Laboratory Results Last 24 Hours Test 07/06/16 20:25 07/07/16 05:44 07/07/16 07:36 07/07/16 11:28 Bedside Glucose 196 mg/dl 140 mg/dl 233 mg/dl White Blood Count 1.55 K/uL Red Blood Count 2.73 M/uL Hemoglobin 9.4 g/dL Hematocrit 28.0 % Mean Corpuscular Volume 102.6 fL Mean Corpuscular Hemoglobin 34.4 pg Mean Corpuscular Hemoglobin Concent 33.6 g/dl Platelet Count 51 K/uL Mean Platelet Volume 12.4 fL RDW Standard Deviation 76.5 fL RDW Coefficient of Variation 20.5 % Nucleated RBC Absolute Count (auto) 0.03 K/uL Neutrophils % (Manual) 13.9 % Lymphocytes % (Manual) 64.4 % Monocytes % (Manual) 13.9 % Eosinophils % (Manual) 7.8 % Nucleated Red Blood Cells % 1.7 % Neutrophils # (Manual) 0.22 K/uL Total Absolute Neutrophils 0.22 K/uL Lymphocytes # (Manual) 1.00 K/uL Total Absolute Lymphocytes 1.00 K/uL Monocytes # (Manual) 0.22 K/uL Eosinophils # (Manual) 0.12 K/uL Toxic Granulation 2+ Large Platelets 1+ Anisocytosis PRESENT Macrocytosis PRESENT Sodium Level 140 mmol/L Potassium Level 2.9 mmol/L Chloride Level 98 mmol/L Carbon Dioxide Level 31 mmol/L Anion Gap 11.0 mmol/L Blood Urea Nitrogen 37 mg/dl Creatinine 2.10 mg/dl Est Creatinine Clear Calc Drug Dose 29.3 ml/min Estimated GFR () 32.7 Estimated GFR (Non- 28.3 BUN/Creatinine Ratio 17.6 Random Glucose 138 mg/dl Lactic Acid Level 1.0 mmol/L Calcium Level 8.5 mg/dl Phosphorus Level 2.9 mg/dl Magnesium Level 1.8 mg/dl Total Bilirubin 1.9 mg/dl Aspartate Amino Transf (AST/SGOT) 18 U/L Alanine Aminotransferase (ALT/SGPT) 10 U/L Alkaline Phosphatase 72 U/L Ammonia 19.0 umol/L Total Protein 6.0 gm/dl Albumin 2.5 gm/dl Globulin 3.5 gm/dl Albumin/Globulin Ratio 0.7 Test 07/07/16 13:42 07/07/16 16:37 Vancomycin Level Trough 19.9 mcg/ml Bedside Glucose 147 mg/dl Assessment and Plan 85 years old man who was recently diagnosed with myelodysplastic syndrome (7% blasts) recently had started chemotherapy. presented to ED with gradual onset confusion and change in mental status. pancytopenia secondary to myelodysplastic disease and chemotherapy D/W Dr. Hardy, we should avoid neupogen continue to monitor abdominal wall cellulitis, continue vanco/zosyn until Dr. Lipscomb see the patient Unlikely his confusion is secondary to that Urine cultures and blood cultures are pending. D/W family who are hesitant to perform LP D/W Dr. Hardy, if we get an LP we will send for cytology R/O blasts in CSF, still awaiting for family to decide Hypotension all BP meds including Bumex is on hold Change in mental status likely metabolic encephalopathy due some occult infection versus worsening dementia procalcitonin is 0.13 family considering LP if no improvement minimal elevation in Ammonia level but its all what I got will treat with rifaximine/lactulose CAD/Atrial fibrillation/nonischemic cardiomyopathy/chronic systolic CHF- continue carvedilol 25 mg by mouth twice a day with hold parameters aspirin 81 mg by mouth every morning Imdur extended release 120 mg by mouth every morning nitroglycerin sublingual when necessary continue Bumex 4 mg by mouth twice a day, and potassium chloride 40 mEq by mouth twice a day. Diabetes mellitus continue holding glimepiride and Onglyza continue Lantus Solostar 10 units subcutaneous every morning. Accu-Cheks before meals and at bedtime with NovoLog coverage. Hypercholesterolemia--continue atorvastatin 80 mg by mouth at bedtime, and gemfibrozil 600 mg by mouth every morning. Gout--continue allopurinol 300 mg by mouth every morning. Hypothyroidism--continue levothyroxine sodium at 100 g by mouth every morning. GERD--change omeprazole 20 mg by mouth daily to pantoprazole 40 mg by mouth daily. B12 deficiency--continue vitamin B-12 1000 g by mouth daily supplement. GI dysmotility--continue Linzess at 145 g by mouth daily.he has abdominal pain today on exam CT abdomen/pelvis/chest was negative as below Cardiomegaly. Small pleural effusions are identified. 3. The appearance of the liver suggests early changes of cirrhosis. 4. There is a small to moderate volume of abdominopelvic ascites. 5. Moderate diverticulosis of the left colon without clear CT evidence of acute diverticulitis.Cardiomegaly. Small pleural effusions are identified. 3. The appearance of the liver suggests early changes of cirrhosis. 4. There is a small to moderate volume of abdominopelvic ascites. 5. Moderate diverticulosis of the left colon without clear CT evidence of acute diverticulitis. Anxiety/insomnia--continue lorazepam 1 mg by mouth at bedtime, and 0.5 mg by mouth during the night if wakes up. We'll hold trazodone 100 mg by mouth at bedtime associated with family discussion. Peripheral neuropathy--continue gabapentin 400 mg by mouth 3 times a day. Pain management--continue tramadol 50 mg by mouth 4 times a day when necessary. [id number] Zofran to 4 mg IV every 6 hours when necessary with repeat in 30 minutes if needed. 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
[2016-07-07] MEDS: ATORVASTATIN 40 MG TAB PO SCH (20:50)
[2016-07-08 00:14] VITALS: BP 104/70; PULSE 72; TEMP 36.8; O2SAT 99
[2016-07-08] MEDS: LACTULOSE SYRUP 30 GM/45 ML UDP PO SCH ×3 (00:35→12:00)
[2016-07-08] MEDS: PIPERACILL/TAZOBAC IV 4.5 GM in DEXTROSE 5% 100ML 100 ML IV SCH (02:04)
[2016-07-08] MEDS: LEVOTHYROXINE 100 MCG TAB PO SCH (05:32)
[2016-07-08 06:29] LABS: ALB/GLOB RATIO 0.7 (0.9-2); BUN/CREATININE RATIO 13.8 (10-20); CALCIUM 8.8 mg/dl (8.5-10.1); CREATININE 2.7 mg/dl (0.60-1.40); MAGNESIUM 1.8 mg/dl (1.8-2.4); POTASSIUM 3.5 mmol/L (3.5-5.1)
[2016-07-08 06:45] LABS: ESTIMATED AVERAGE GLUCOSE 163 mg/dl; HA1C FLAG Normal (Normal)
[2016-07-08 07:45] VITALS: BP 103/67; PULSE 84; TEMP 36.7; O2SAT 100
[2016-07-08] MEDS: ASPIRIN 81 MG ECTAB PO SCH (08:28)
[2016-07-08] MEDS: POTASSIUM CHLORIDE 20 MEQ TABCR PO SCH (08:29)
[2016-07-08] MEDS: GABAPENTIN 400 MG CAP PO SCH (08:29)
[2016-07-08] MEDS: PANTOprazole SOD 40 MG TAB PO SCH (08:29)
[2016-07-08] MEDS: GEMFIBROZIL 600 MG TAB PO SCH (08:29)
[2016-07-08] MEDS: ACETAMINOPHEN 500 MG TAB PO SCH (08:30)
[2016-07-08] MEDS: CYANOCOBALAMIN 500 MCG TAB (VIT B-12) PO SCH (08:30)
[2016-07-08] MEDS: ALLOPURINOL 300 MG TAB PO SCH (08:30)
[2016-07-08] MEDS: RIFAXIMIN TAB 550 MG TAB PO SCH (08:30)
[2016-07-08] MEDS: INSULIN ASPART 100 UNITS/ML 3 ML PEN SC SCH (08:33)
[2016-07-08] MEDS: LINZESS~ORDER AWAITING ACTION SCH ×2 (08:38)
[2016-07-08] MEDS ORDERED: PIPERACILL/TAZOBAC IV 4.5 GM in DEXTROSE 5% 100ML 100 ML IV SCH (10:00)
[2016-07-08] MEDS ORDERED: ATROPO OR (12:00)
[2016-07-08] MEDS ORDERED: OXYC10SO PO (12:00)
[2016-07-08] MEDS ORDERED: MCRK20 PO (12:00)
[2016-07-08] MEDS ORDERED: BACI500O11 TOP (12:00)
[2016-07-08] MEDS ORDERED: DIAZ-165 PO (12:00)
[2016-07-08] MEDS ORDERED: TRAZ100T29 PO (12:00)
[2016-07-08] MEDS ORDERED: ONDA4TAB10 SL (12:00)
--- NOTE | 2016-07-08 12:02 | Discharge Instructions ---
Discharge Instructions Admission Admission Date: Jul 04, 2016 at 19:48 Admission Diagnosis: Abdominal Wall Cellulitis, Neutropenia Associated. Care Plan - Goal(s): Improve function Care Plan - Instructions: Recommended Home Diet: 1800 [place] Wt Reduction, AHA Phase I (2gmNa/LoCho), Type 2 Diabetes VTE Core Measure Inpt VTE Proph given/why not?: SCD's Laboratory Results Test Results: Hemoglobin A1c Test 07/08/16 05:23 Range/Units Estimated Average Glucose 163 mg/dl Hemoglobin A1c 7.3 H 4.5-5.6 % Lipid Panel Test 05/05/16 15:49 Range/Units Triglycerides Level 73 0-150 mg/dl Cholesterol Level 72 0-200 mg/dl HDL Cholesterol 23 mg/dl Cholesterol/HDL Ratio 3.1 LDL Cholesterol, Calculated 34 mg/dl [facility] Recommendations: Call your doctor if: * Temperature above 101 degrees * Pain not relieved by pain medicine ordered * There is increased drainage or redness from any incision * You have any unanswered questions or concerns. Your Doctors Instructions noted above were prepared by provider Zana Andre.
[2016-07-08 12:10] VITALS: BP 103/67; PULSE 84; TEMP 36.7; O2SAT 100
[2016-07-08] MEDS ORDERED: VANCOMYCIN INJ 1,000 MG in SODIUM CHLORIDE 0.9% 250ML 250 ML IV SCH (14:00)
[2016-07-08] MEDS ORDERED: MRPL PO (16:22)
--- NOTE | 2016-07-08 16:36 | Discharge Summary ---
Discharge Summary Admission Date: Jul 04, 2016 at 19:48 Discharge Date: Jul 08, 2016 Discharge Disposition: Home with services (with hospice) Problems/Secondary Diagnoses: pancytopenia secondary to myelodysplastic disease and chemotherapy abdominal wall cellulitis, Hypotension Change in mental status/likely metabolic encephalopathy CAD/Atrial fibrillation/nonischemic cardiomyopathy/chronic systolic CHF- Diabetes mellitus Hypercholesterolemia- Gout- Hypothyroidism GERD B12 deficiency GI dysmotility- Anxiety/insomnia Peripheral neuropathy--continue gabapentin 400 mg by mouth 3 times a day. [id number] Zofran to 4 mg IV every 6 hours when necessary with repeat in 30 minutes if needed. CKD stage 3-4 Immunizations: Have You Had Influenza Vaccine: No History of Tetanus Vaccine?: Yes Tetanus Immunization Date: Apr 01, 2004 History of Pneumococcal: Yes Pneumococcal Date: Apr 01, 2002 History of Hepatitis B Vaccine: Yes Hepatitis Immunization Date: Apr 01, 2005 Discharge Exam Physical Exam: General Appearance: + mild distress Eyes: PERRL, EOMI ENT: hearing grossly normal, TMs normal Neck: supple Respiratory/Chest: chest non-tender, lungs clear, normal breath sounds, no respiratory distress Cardiovascular: regular rate, rhythm, no edema, no gallop, + systolic murmur Abdomen / GI: normal bowel sounds, non tender, soft, no organomegaly, no pulsatile mass Extremities: normal inspection, no calf tenderness 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 presented to ED with gradual onset confusion and change in mental status. He was found to have pancytopenia secondary to myelodysplastic disease and chemotherapy D/W Dr. Hardy, we should avoid Neupogen, espicially there was no fever or hypotension abdominal wall cellulitis, minimal dry clean ulcer 2X2 cm started on vanco/zosyn Dr. Lipscomb was consulted to see the patient, family wanted Hospice so consult was cancelled Unlikely his confusion is secondary to that Urine cultures and blood cultures are pending. D/W family who are hesitant to perform LP D/W Dr. Hardy, if we get an LP we will send for cytology R/O blasts in CSF, but since they preferered hospice, all these plans were cancelled anyway border line Hypotension/ pump in creatinine all BP meds including Bumex were held Change in mental status, likely metabolic encephalopathy due some occult infection versus worsening dementia procalcitonin is 0.13 family considering LP if no improvement minimal elevation in Ammonia level but its all what I got he was treated with rifaximine/lactulose for his CAD/Atrial fibrillation/nonischemic cardiomyopathy/chronic systolic CHF- initially continued carvedilol 25 mg by mouth twice a day with hold parameters, was held due to border line low pressure for Diabetes mellitus continued holding glimepiride and Onglyza also held Lantus Solostar 10 units subcutaneous every morning. started Accu-Cheks before meals and at bedtime with NovoLog coverage. CT abdomen/pelvis/chest was negative as below Cardiomegaly. Small pleural effusions are identified. 3. The appearance of the liver suggests early changes of cirrhosis. 4. There is a small to moderate volume of abdominopelvic ascites. 5. Moderate diverticulosis of the left colon without clear CT evidence of acute diverticulitis.Cardiomegaly. Small pleural effusions are identified. 3. The appearance of the liver suggests early changes of cirrhosis. 4. There is a small to moderate volume of abdominopelvic ascites. 5. Moderate diverticulosis of the left colon without clear CT evidence of acute diverticulitis. today he is slightly more awake and cohorent, with all his daughters around him , he asked them to stop aggressive therapy and to let him go home. his daughters paged me to come and fulfill his wishes, I came and discussed the hospice option with them. His daughter was familiar with the concept and had already called the hospice company. he was discharged on hospice. This includes examination of the patient, discharge planning, medication reconciliation, and communication with other providers. Discharge Instructions Please refer to the electronic Patient Visit Report (Discharge Instructions) for additional information.
== END 2016-07-08 12:46 | disposition hospice, home (50) | DRG 808 ==
LOC: ENRESERVDT → ENRESERVTM → C.EDB 16:46 → C.4E 19:48
PROVIDERS: ADMIT Hospitalist; ATTEND Internal Medicine
DX: D61.810 Antineoplastic chemotherapy induced pancytopenia (principal); G93.41 Metabolic encephalopathy; L03.311 Cellulitis of abdominal wall; I42.9 Cardiomyopathy, unspecified; I50.22 Chronic systolic (congestive) heart failure; D46.9 Myelodysplastic syndrome, unspecified; Z51.5 Encounter for palliative care; I95.9 Hypotension, unspecified; I25.10 Atherosclerotic heart disease of native coronary artery without angina pectoris; I48.91 Unspecified atrial fibrillation; E11.42 Type 2 diabetes mellitus with diabetic polyneuropathy; E11.22 Type 2 diabetes mellitus with diabetic chronic kidney disease; E78.00 Pure hypercholesterolemia, unspecified; M10.9 Gout, unspecified; E03.9 Hypothyroidism, unspecified; K21.9 Gastro-esophageal reflux disease without esophagitis; E53.8 Deficiency of other specified B group vitamins; K59.8 Other specified functional intestinal disorders; K57.30 Diverticulosis of large intestine without perforation or abscess without bleeding; F41.9 Anxiety disorder, unspecified; G47.00 Insomnia, unspecified; R11.0 Nausea; N18.3 Chronic kidney disease, stage 3 (moderate); I51.7 Cardiomegaly; Z95.810 Presence of automatic (implantable) cardiac defibrillator; Z87.891 Personal history of nicotine dependence; Z79.1 Long term (current) use of non-steroidal anti-inflammatories (NSAID); Z79.4 Long term (current) use of insulin; Z79.82 Long term (current) use of aspirin; Z79.84 Long term (current) use of oral hypoglycemic drugs; Z79.899 Other long term (current) drug therapy; Z88.6 Allergy status to analgesic agent; Z88.8 Allergy status to other drugs, medicaments and biological substances; Z82.49 Family history of ischemic heart disease and other diseases of the circulatory system